=== PATIENT | female | born 1930 | race Caucasian/White ===

== ENCOUNTER → 2016-12-25 | Outpatient (CLI) | payer OTHER ==
[~2016-12-25] MED LIST: ACET325T96 PO; AMLO-110 PO; ARIP2TAB3 PO; ASPCH81 PO; ASPI81TA28 PO; CITA20TA4 PO; CLON0.5T3 PO; CYCL5TAB PO; CYM60 PO; DOCU-94 PO; DYZ PO; GABA-112 PO; HYOS1TAB PO; IMD/2 PO; LEVO75TA5 PO; LISI-461 PO; LSN10 PO; LSN20 PO; LSX20 PO; METO25TA3 PO; NABU500T3 PO; NICO21DI12 TD; NRV5 PO; OXYC-57 PO; POTA10CA28 PO; RISP1TAB68 PO; SYN75 PO; TOVIAZ ER PO; VSC/5 PO
[2016-12-25 10:04] LABS: BASO % 0.5 %; BASO ABS # 0.04 K/uL (0-0.2); COMPLETE YES; EOS % 1.9 %; IG% 0.1 %; LYMPH % 16.7 %; LYMPH ABS # 1.24 K/uL (1.2-3.4); MEAN CELL VOLUME 90.9 fL (80-100); MEAN CORPUSCULAR HEMOGLOBIN 30.9 pg (25-34); MEAN PLATELET VOLUME 10.5 fL (7.4-10.4); MONO % 11.8 %; PLATELET COUNT 224 K/uL (130-400); RED BLOOD COUNT 4.73 M/uL (4.2-5.4); WHITE BLOOD COUNT 7.44 K/uL (4.8-10.8)
[2016-12-25 10:12] LABS: ALT/SGPT 20 U/L (12-78); BLOOD UREA NITROGEN 20 mg/dl (7-18); BUN/CREATININE RATIO 20.1 (10-20); CALCIUM 8.6 mg/dl (8.5-10.1); CARBON DIOXIDE 25 mmol/L (21-32); CHLORIDE 109 mmol/L (98-107); CHOLESTEROL 212 mg/dl (0-200); CREATININE 0.97 mg/dl (0.60-1.20); GLUCOSE 94 mg/dl (70-99); SODIUM 143 mmol/L (136-145); TRIGLYCERIDES 196 mg/dl (0-150); VERY LOW DENSITY LIPOPROT CALC 39 mg/dl
[2016-12-25 10:22] LABS: ALB/GLOB RATIO 0.9 (0.9-2); ALKALINE PHOSPHATASE 81 U/L (45-117); AST/SGOT 15 U/L (15-37); CHOLESTEROL/HDL RATIO 5.9; HDL CHOLESTEROL 36 mg/dl; LDL CHOLESTEROL CALCULATED 137 mg/dl
== END | disposition home or self-care (01) ==
LOC: C.LABOUTLO 09:21
PROVIDERS: ATTEND Family Medicine
DX: I10 Essential (primary) hypertension (principal); E03.9 Hypothyroidism, unspecified

== ENCOUNTER 2017-02-24 21:28 | Inpatient (IN) | payer OTHER ==
[~2017-02-24] VITALS: Ht 149.9 cm; Wt 80.4 kg
[~2017-02-24 21:28] MED LIST changes: -ACET325T96 PO; -AMLO-110 PO; -ARIP2TAB3 PO; -ASPI81TA28 PO; -CITA20TA4 PO; -DOCU-94 PO; -GABA-112 PO; -IMD/2 PO; -LEVO75TA5 PO; -LSN10 PO; -LSN20 PO; -METO25TA3 PO; -NRV5 PO; -OXYC-57 PO; -VSC/5 PO
[2017-02-24] MEDS ORDERED: LEVO75TA5 PO (22:14)
[2017-02-24] MEDS ORDERED: LSN20 PO (22:14)
[2017-02-24] MEDS ORDERED: IMD/2 PO (22:15)
[2017-02-24] MEDS ORDERED: ARIP2TAB3 PO (22:15)
[2017-02-24] MEDS ORDERED: AMLO-110 PO (22:15)
[2017-02-24] MEDS ORDERED: ACET325T96 PO (22:15)
[2017-02-24] MEDS ORDERED: CITA20TA4 PO (22:15)
[2017-02-24] MEDS ORDERED: DOCU-94 PO (22:15)
[2017-02-24] MEDS ORDERED: OXYC-57 PO (22:15)
[2017-02-24] MEDS ORDERED: VSC/5 PO (22:15)
[2017-02-24] MEDS ORDERED: ASPI81TA28 PO (22:15)
[2017-02-24] MEDS ORDERED: METO25TA3 PO (22:15)
[2017-02-24] MEDS ORDERED: GABA-112 PO (22:15)
[2017-02-24] MEDS ORDERED: PIPERACILLIN/TAZOBACTAM 4.5 GM/100ML D5W IV STA (22:22)
[2017-02-24] MEDS ORDERED: LEVAQUIN 500MG / 100ML D5W IV ONE (22:30)
--- NOTE | 2017-02-24 22:40 | DIAGNOSTIC IMAGING REPORT ---
CHEST ONE VIEW PORTABLE CLINICAL HISTORY: Fever. COMPARISON STUDY: Chest radiograph April 01, 2009. FINDINGS: There is a prominent left perihilar opacity which was not evident on exam of April 01, 2009. A triangular opacity at the right cardiophrenic angle is unchanged since prior exam and likely reflects a fat pad. Moderate cardiomegaly is unchanged. There is no evidence of pulmonary edema. No pneumothorax or pleural effusions present. Apparent left basilar opacity is unchanged. IMPRESSION: Prominent left perihilar opacity which was not evident on prior exam. This could reflect normal structures however airspace disease or a mass could appear similar. Follow-up PA and lateral chest radiographs are recommended. Electronically signed by: Azam Carbajal M.D. 02/24/2017 10:38 PM Dictated Date/Time: 02/24/2017 10:36 PM
[2017-02-24 22:54] LABS: BASO % 0.2 %; BASO ABS # 0.03 K/uL (0-0.2); COMPLETE YES; HEMATOCRIT 42.5 % (37-47); IG% 0.3 %; LYMPH % 10.9 %; LYMPH ABS # 1.62 K/uL (1.2-3.4); MEAN CELL VOLUME 89.7 fL (80-100); MEAN CORPUSCULAR HGB CONC 34.6 g/dl (32-36); MEAN PLATELET VOLUME 10.6 fL (7.4-10.4); MONO % 11.6 %; PLATELET COUNT 212 K/uL (130-400); RED BLOOD COUNT 4.74 M/uL (4.2-5.4)
[2017-02-24 23:01] LABS: ALT/SGPT 18 U/L (12-78); BLOOD UREA NITROGEN 19 mg/dl (7-18); BUN/CREATININE RATIO 17.1 (10-20); CALCIUM 8.6 mg/dl (8.5-10.1); CARBON DIOXIDE 23 mmol/L (21-32); CHLORIDE 106 mmol/L (98-107); GLUCOSE 138 mg/dl (70-99); MAGNESIUM 1.8 mg/dl (1.8-2.4); POTASSIUM 4.3 mmol/L (3.5-5.1); SODIUM 138 mmol/L (136-145)
[2017-02-24 23:02] LABS: PROTHROMBIN TIME (PATIENT) 10.9 SECONDS (9.0-12.0)
[2017-02-24 23:06] LABS: ALKALINE PHOSPHATASE 82 U/L (45-117); AST/SGOT 17 U/L (15-37); CKMB/CK RATIO 1.3 (0-3.0)
[2017-02-24 23:16] LABS: ISTAT CREATININE 0.9 mg/dl (0.6-1.3); ISTAT HEMOGLOBIN 14.6 g/dl (12.0-16.0); ISTAT IONIZED CALCIUM 1.13 mmol/l (1.12-1.32)
[2017-02-24 23:46] LABS: URINE APPEARANCE CLOUDY (CLEAR); URINE COLOR DK YELLOW; URINE NITRITE POS (NEG); URINE SPECIFIC GRAVITY 1.031 (1.000-1.030); UROBILINOGEN NEG (NEG); ZZUR CULT IF INDIC CLEAN CATCH YES
[2017-02-24 23:47] LABS: MANUAL MICROSCOPIC REQUIRED? NO; REVIEW REQ? YES
[2017-02-25] VITALS (8 sets, daily range): BP systolic 104–184; BP diastolic 48–83; PULSE 43–59; TEMP 37–37.7; O2SAT 92–96; Ht 149.9 cm; Wt 80.4 kg
[2017-02-25] LABS: URINE BILIRUBIN NEG (NEG)
[2017-02-25] MEDS ORDERED: ALUMINUM/MAGNESIUM/SIMETH (MAALOX MAX) 30 ML UDC PO PRN (00:15)
[2017-02-25] MEDS ORDERED: MAGNESIUM HYDROXIDE SUSP 30 ML UDC PO PRN (00:15)
[2017-02-25] MEDS ORDERED: ONDANSETRON INJ 2 MG/ML 2 ML VIAL IV PRN (00:15)
[2017-02-25] MEDS ORDERED: POLYETHYLENE (MIRALAX) 17 GM PACK PO PRN (00:15)
[2017-02-25] MEDS ORDERED: ACETAMINOPHEN 325 MG TAB PO PRN (00:15)
--- NOTE | 2017-02-25 00:29 | History and Physical ---
History & Physical Date & Time of Service: Feb 25, 2017 at 00:28 Chief Complaint: Ams, Congestion Primary Care Physician: [facility] History of Present Illness Source: hospital records this is a 87 yo female with hx of dementia, resident at [facility] Personal care sent to ED -as pt was found to be lethargic, increasing confusion, having fever chills on going cough and difficulty breathing history was limited -as pt has baseline dementia, could not give any meaningful information Spoke with Pt 's Son Donnell Denton over phone -Son mentions -[facility] stuff notified the family that pt was not eating , was sleeping most of the time past 48 hrs spiked temp , coughing , today afternoon pt was having labored breathing , pulse oximetry shows desaturation in 88% 2 L 02 was applied ( baseline not on home 02 ) EMS called -sent to ED for evaluation lab shows -leukocytosis WBC 14 K , persistent hypoxia requiring supplemental 02 \ Cxray -possible basilar infiltrate pt admitted to Tele for Pneumonia-causing hypoxia, lethargy and changed mental status Past Medical/Surgical History Medical Problems: (1) Diverticulosis of colon (without mention of hemorrhage) Status: Chronic (2) Hypertension Status: Chronic (3) Hypothyroidism, unspecified Status: Chronic (4) Macular degeneration Status: Chronic Family History FH: cardiovascular disease Social History Smoking Status: Former Smoker Housing status: lives alone Immunizations History of Influenza Vaccine: Yes Influenza Vaccine Date: Dec 09, 2004 History of Tetanus Vaccine?: Unknown History of Pneumococcal: Yes Pneumococcal Date: Dec 09, 2002 History of Hepatitis B Vaccine: Unknown Multi-Drug Resistant Organisms History of MDRO: No Allergies Coded Allergies: Lamotrigine (Verified Allergy, Mild, RASH;WELPAOLO, 02/24/17) Aminoglycosides (Verified Allergy, Unknown, 02/24/17) Replaces BACITRACIN/NE Bacitracin (Verified Allergy, Unknown, 02/24/17) Replaces BACITRACIN/NE Neomycin (Verified Allergy, Unknown, 02/24/17) Replaces BACITRACIN/NE Polymyxin B (Verified Allergy, Unknown, 02/24/17) Replaces BACITRACIN/NE Sulfa Drugs (Verified Allergy, Unknown, 02/24/17) Home Medications Scheduled Amlodipine (Norvasc), 5 MG PO QAM Aripiprazole (Abilify), 2 MG PO QAM Aspirin (Aspirin Ec), 81 MG PO QAM Citalopram Hydrobromide (Citalopram Hydrobromide), 20 MG PO QAM Gabapentin (Neurontin), 100 MG PO DAILY AT 1600 Levothyroxine Sodium (Levothyroxine Sodium), 75 MCG PO QAM Lisinopril (Lisinopril), 20 MG PO QAM Metoprolol Succinate (Toprol Xl), 25 MG PO BID Potassium Chloride (Micro-K Ext Rel), 10 MEQ PO BIDM Solifenacin (Vesicare), 5 MG PO QAM Scheduled PRN Acetaminophen Tab (Tylenol), 650 MG PO Q4H PRN for Pain or Fever Docusate Sodium (Colace), 100-200 MG PO DAILY PRN for Constipation Loperamide Hcl (Imodium), 2 MG PO Q4H PRN for Diarrhea Oxycodone/Acetaminophen 5MG/325MG (Percocet 5MG/325MG), 1-2 TABLETS PO Q6H PRN for Pain Review of Systems Constitutional: + chills, + fatigue, + fever, + weakness Respiratory: + cough, + dyspnea on exertion, + shortness of breath, + sputum, + wheezing Abdomen: + nausea Neurologic: + memory loss (baseliene dementia ), + vertigo, + weakness Physical Exam Vital Signs Date Time Temp Pulse Resp B/P Pulse Ox O2 Delivery O2 Flow Rate FiO2 02/25/17 00:23 02/24/17 23:53 52 18 120/63 93 Nasal Cannula 2.0 02/24/17 21:51 46 02/24/17 21:28 90 Room Air 02/24/17 21:28 37.7 44 22 112/74 90 Room Air 02/24/17 21:28 90 Room Air General Appearance: no apparent distress (pleasant ) Eyes: normal inspection Respiratory/Chest: + decreased breath sounds, + crackles, + rales Cardiovascular: regular rate, rhythm, no edema Abdomen/GI: normal bowel sounds, non tender, soft Extremities/Musculoskelatal: no pedal edema Neurologic/Psych: + pertinent finding (baseline dementia, oriented to person only ) Diagnostics Laboratory Results Results Past 24 Hours Test 02/24/17 22:02 02/24/17 22:15 02/24/17 22:56 02/24/17 23:30 Range/Units Bedside Lactic Acid Venous 1.43 0.90-1.70 mmol/L White Blood Count 14.80 4.8-10.8 K/uL Red Blood Count 4.74 4.2-5.4 M/uL Hemoglobin 14.7 12.0-16.0 g/dL Hematocrit 42.5 37-47 % Mean Corpuscular Volume 89.7 80-100 fL Mean Corpuscular Hemoglobin 31.0 25-34 pg Mean Corpuscular Hemoglobin Concent 34.6 32-36 g/dl Platelet Count 212 130-400 K/uL Mean Platelet Volume 10.6 7.4-10.4 fL Neutrophils (%) (Auto) 77.0 % Lymphocytes (%) (Auto) 10.9 % Monocytes (%) (Auto) 11.6 % Eosinophils (%) (Auto) 0.0 % Basophils (%) (Auto) 0.2 % Neutrophils # (Auto) 11.39 1.4-6.5 K/uL Lymphocytes # (Auto) 1.62 1.2-3.4 K/uL Monocytes # (Auto) 1.72 0.11-0.59 K/uL Eosinophils # (Auto) 0.00 0-0.5 K/uL Basophils # (Auto) 0.03 0-0.2 K/uL RDW Standard Deviation 45.6 36.4-46.3 fL RDW Coefficient of Variation 13.8 11.5-14.5 % Immature Granulocyte % (Auto) 0.3 % Immature Granulocyte # (Auto) 0.04 0.00-0.02 K/uL Prothrombin Time 10.9 9.0-12.0 SECONDS Prothromb Time International Ratio 1.0 0.9-1.1 Sodium Level 138 136-145 mmol/L Potassium Level 4.3 3.5-5.1 mmol/L Chloride Level 106 98-107 mmol/L Carbon Dioxide Level 23 21-32 mmol/L Anion Gap 9.0 17.0 16-25 mmol/L Blood Urea Nitrogen 19 7-18 mg/dl Creatinine 1.10 0.60-1.20 mg/dl Est Creatinine Clear Calc Drug Dose 35.1 ml/min Estimated GFR () 51.5 Estimated GFR (Non- 44.5 BUN/Creatinine Ratio 17.1 10-20 Random Glucose 138 70-99 mg/dl Calcium Level 8.6 8.5-10.1 mg/dl Magnesium Level 1.8 1.8-2.4 mg/dl Total Bilirubin 1.2 0.2-1 mg/dl Direct Bilirubin 0.2 0-0.2 mg/dl Aspartate Amino Transf (AST/SGOT) 17 15-37 U/L Alanine Aminotransferase (ALT/SGPT) 18 12-78 U/L Alkaline Phosphatase 82 45-117 U/L Total Creatine Kinase 68 26-192 U/L Creatine Kinase MB 0.9 0.5-3.6 ng/ml Creatine Kinase MB Ratio 1.3 0-3.0 Troponin I < 0.015 0-0.045 ng/ml Total Protein 7.0 6.4-8.2 gm/dl Albumin 3.3 3.4-5.0 gm/dl Bedside Hemoglobin 14.6 12.0-16.0 g/dl Bedside Hematocrit 43 37-47 % Bedside Sodium 139 135-144 mEq/L Bedside Potassium 4.2 3.3-5.0 mEq/L Bedside Chloride 103 101-112 mEq/L Bedside Total CO2 24 24-31 mEq/l Bedside Blood Urea Nitrogen 18 7-18 mg/dl Bedside Creatinine 0.9 0.6-1.3 mg/dl Bedside Glucose (other) 136 70-99 mg/dl Bedside Ionized Calcium (Ochoa) 1.13 1.12-1.32 mmol/l Urine Color DK YELLOW Urine Appearance CLOUDY CLEAR Urine pH 5.0 4.5-7.5 Urine Specific [place] 1.031 1.000-1.030 Urine Protein 1+ NEG Urine Glucose (UA) NEG NEG Urine Ketones TRACE NEG Urine Occult Blood 1+ NEG Urine Nitrite POS NEG Urine Bilirubin NEG NEG Urine Urobilinogen NEG NEG Urine Leukocyte Esterase MODERATE NEG Urine WBC (Auto) >30 0-5 /hpf Urine RBC (Auto) 0-4 0-4 /hpf Urine Hyaline Casts (Auto) 10-30 0-5 /lpf Urine Epithelial Cells (Auto) 5-10 0-5 /lpf Urine Bacteria (Auto) 2+ NEG Urine Yeast (Auto) NONE PRSENT Test 02/24/17 23:48 Range/Units Influenza Type A Antigen Neg for Influ A NEG Influenza Type B Antigen Neg for Influ B NEG Microbiology Results 02/24/17 Blood Culture, Received Pending 02/24/17 Blood Culture, Received Pending 02/24/17 Urine Culture, Received Pending Diagnostic Radiology IMPRESSION: Prominent left perihilar opacity which was not evident on prior exam. This could reflect normal structures however airspace disease or a mass could appear similar. Follow-up PA and lateral chest radiographs are recommended. Impression Assessment and Plan HYPOXIA /SOB /PNEUMONIA : due to pneumonia -community acquired Influenza screen negative empiric Abx with Rocephin /Zithromax sputum /blood culture ordered cont supplemental 02 till pneumonia improved -may need 2 step exercise prior to discharge home neb tx repeat Cxray in AM CHANGED MENTAL STATUS /METABOLIC ENCEPHALOPATHY : due to above presented with Lethargy , increased somnolence improved after IV hydration , ABx awake , pleasant, oriented to person only very poor short term memory and recall -as per family members -Son -baseline mental status DEMENTIA : mental status improved to baseline cont to monitor caution for sundowning /delirium during hospital stay with acute illness HTN cont ACEI / Norvasc BRADYCARDIA ; not sure of the etiology monitor in tele ordered to hold beta leonid check TSH HYPOTHYROIDISM : cont levothyroxine ordered for TSH CODE STATUS : d/w SON /POA -has living will DNR /DNI DVT PROPHYLAXIS ; moderate to high risk sub q heparin DISPOSITION : resident at [facility] personal Care return to [facility] when medically stable PT/OT eval prior to discharge social service consulted for discharge planning Level of Care Telemetry Resuscitation Status DO NOT RESUSCITATE VTE Prophylaxis VTE Risk Assessment Done? Y/N: Yes Risk Level: Moderate Given or contraindicated: Unfractionated heparin SQ
[2017-02-25] MEDS ORDERED: OXYCODONE/ACETAMINOPHEN 5-325 TAB PO PRN (00:30)
[2017-02-25] MEDS ORDERED: DOCUSATE SODIUM 100 MG CAP PO PRN (00:30)
[2017-02-25] MEDS ORDERED: LOPERAMIDE HCL 2 MG CAP PO PRN (00:30)
[2017-02-25] MEDS ORDERED: SODIUM CHLORIDE 0.9% 1000ML 1,000 ML IV SCH (00:45)
[2017-02-25] MEDS ORDERED: [UNRECOGNIZED DRUG - REMARK] PRN (01:07)
[2017-02-25] MEDS: AZITHROMYCIN IV 500 MG in DEXTROSE 5% 250ML 250 ML IV SCH (01:10)
[2017-02-25] MEDS: CEFTRIAXONE SOD INJ 1 GM in DEXTROSE 5% ADD-VANTAGE 50ML 50 ML IV SCH (01:10)
--- NOTE | 2017-02-25 01:45 | EMERGENCY ROOM VISIT NOTE ---
History Report prepared by Laisha: Natacha Hoffmann Under the Supervision of: Dr. Devyn Ash D.O. First contact with patient: 22:09 Chief Complaint: CHEST PAIN Stated Complaint: AMS, CONGESTION Nursing Triage Summary: Per EMS, patient c/o of chest pain, nausea and pain in left shoulder since yesterday. Patient reports "feeling off." EMS reports "Facility staff reported patient not herself, "having inappropriate conversations." Hx of Afib. History of Present Illness The patient is a 87 year old female who presents to the Emergency Room with complaints of worsening respiratory symptoms that began yesterday. The history is obtained from the patient's sons due to her AMS. They state that the patient is at her baseline mentally. She is currently a resident at [facility]. Staff called the patient's son a couple of hours ago and stated that the patient had a fever with a temperature of 101. She has been short of breath and bradycardic. Her O2 was 82% on room air so she was sent to the ED for further evaluation. [facility] states that pneumonia is currently going through their facility. Sons note the patient to be coughing more than usual. The patient denies headache, chest pain, abdominal pain, and leg pain. The history is limited secondary to the patient's dementia. Source of History: patient, family (sons), correction notes History Limited By: dementia Onset: yesterday Position: chest (respiratory) Associated Symptoms: + SOB, + cough, + fevers, No abdominal pain, No chest pain, No headache Review of Systems ROS is limited secondary to the patient's dementia. Past Medical & Surgical Medical Problems: (1) Diverticulosis of colon (without mention of hemorrhage) (2) Hypertension (3) Hypothyroidism, unspecified (4) Macular degeneration (5) Pneumonia Family History FH: cardiovascular disease Social History Smoking Status: Former Smoker Marital Status: Housing Status: assisted living Occupation Status: unemployed Current/Historical Medications Scheduled Amlodipine (Norvasc), 5 MG PO QAM Aripiprazole (Abilify), 2 MG PO QAM Aspirin (Aspirin Ec), 81 MG PO QAM Citalopram Hydrobromide (Citalopram Hydrobromide), 20 MG PO QAM Gabapentin (Neurontin), 100 MG PO DAILY AT 1600 Levothyroxine Sodium (Levothyroxine Sodium), 75 MCG PO QAM Lisinopril (Lisinopril), 20 MG PO QAM Metoprolol Succinate (Toprol Xl), 25 MG PO BID Potassium Chloride (Micro-K Ext Rel), 10 MEQ PO BIDM Solifenacin (Vesicare), 5 MG PO QAM Scheduled PRN Acetaminophen Tab (Tylenol), 650 MG PO Q4H PRN for Pain or Fever Docusate Sodium (Colace), 100-200 MG PO DAILY PRN for Constipation Loperamide Hcl (Imodium), 2 MG PO Q4H PRN for Diarrhea Oxycodone/Acetaminophen 5MG/325MG (Percocet 5MG/325MG), 1-2 TABLETS PO Q6H PRN for Pain Allergies Coded Allergies: Lamotrigine (Verified Allergy, Mild, RASH;CHETNA, 02/24/17) Aminoglycosides (Verified Allergy, Unknown, 02/24/17) Replaces BACITRACIN/NE Bacitracin (Verified Allergy, Unknown, 02/24/17) Replaces BACITRACIN/NE Neomycin (Verified Allergy, Unknown, 02/24/17) Replaces BACITRACIN/NE Polymyxin B (Verified Allergy, Unknown, 02/24/17) Replaces BACITRACIN/NE Sulfa Drugs (Verified Allergy, Unknown, 02/24/17) Physical Exam Vital Signs Date Time Temp Pulse Resp B/P Pulse Ox O2 Delivery O2 Flow Rate FiO2 02/24/17 23:53 52 18 120/63 93 Nasal Cannula 2.0 02/24/17 21:51 46 02/24/17 21:28 90 Room Air 02/24/17 21:28 37.7 44 22 112/74 90 Room Air 02/24/17 21:28 90 Room Air Physical Exam GENERAL: alert, sitting up in bed, ill appearing, on NC O2, in no acute distress , pleasantly demented. EYE EXAM: normal conjunctiva, PERRL and EOM's grossly intact OROPHARYNX: no exudate, no erythema, lips, buccal mucosa, and tongue normal and mucous membranes are moist NECK: supple, no nuchal rigidity, no adenopathy, non-tender LUNGS: Rhonchi at the bases bilaterally. Normal chest wall mechanics HEART: Irregularly irregular, bradycardic, no murmurs, S1 normal and S2 normal ABDOMEN: abdomen soft, non-tender, normo-active bowel sounds, no masses, no rebound or guarding. BACK: Back is symmetrical on inspection and there is no deformity, no midline tenderness, no CVA tenderness. SKIN: no rashes and no bruising UPPER EXTREMITIES: upper extremities are grossly normal. NEURO EXAM: Alert and oriented to person but not place or time, at baseline per family. Intermittent stuttering speech. No focal deficit of upper extremities, slight flexion in the lower extremities, all at baseline. Medical Decision & Procedures ER Provider Diagnostic Interpretation: Radiology results as stated below per my review and the radiologist's interpretation: CHEST ONE VIEW PORTABLE CLINICAL HISTORY: Fever. COMPARISON STUDY: Chest radiograph April 01, 2009. FINDINGS: There is a prominent left perihilar opacity which was not evident on exam of April 01, 2009. A triangular opacity at the right cardiophrenic angle is unchanged since prior exam and likely reflects a fat pad. Moderate cardiomegaly is unchanged. There is no evidence of pulmonary edema. No pneumothorax or pleural effusions present. Apparent left basilar opacity is unchanged. IMPRESSION: Prominent left perihilar opacity which was not evident on prior exam. This could reflect normal structures however airspace disease or a mass could appear similar. Follow-up PA and lateral chest radiographs are recommended. Electronically signed by: Azam Carbajal M.D. 02/24/2017 10:38 PM Dictated Date/Time: 02/24/2017 10:36 PM Laboratory Results 02/24/17 22:15 Red Blood Count 4.74, Mean Corpuscular Volume 89.7, Mean Corpuscular Hemoglobin 31.0, Mean Corpuscular Hemoglobin Concent 34.6, Mean Platelet Volume 10.6, Neutrophils (%) (Auto) 77.0, Lymphocytes (%) (Auto) 10.9, Monocytes (%) (Auto) 11.6, Eosinophils (%) (Auto) 0.0, Basophils (%) (Auto) 0.2, Neutrophils # (Auto ) 11.39, Lymphocytes # (Auto) 1.62, Monocytes # (Auto) 1.72, Eosinophils # (Auto ) 0.00, Basophils # (Auto) 0.03 02/24/17 22:15 Test 02/24/17 22:02 02/24/17 22:15 02/24/17 22:56 02/24/17 23:30 Bedside Lactic Acid Venous 1.43 mmol/L (0.90-1.70) White Blood Count 14.80 K/uL (4.8-10.8) Red Blood Count 4.74 M/uL (4.2-5.4) Hemoglobin 14.7 g/dL (12.0-16.0) Hematocrit 42.5 % (37-47) Mean Corpuscular Volume 89.7 fL (80-100) Mean Corpuscular Hemoglobin 31.0 pg (25-34) Mean Corpuscular Hemoglobin Concent 34.6 g/dl (32-36) Platelet Count 212 K/uL (130-400) Mean Platelet Volume 10.6 fL (7.4-10.4) Neutrophils (%) (Auto) 77.0 % Lymphocytes (%) (Auto) 10.9 % Monocytes (%) (Auto) 11.6 % Eosinophils (%) (Auto) 0.0 % Basophils (%) (Auto) 0.2 % Neutrophils # (Auto) 11.39 K/uL (1.4-6.5) Lymphocytes # (Auto) 1.62 K/uL (1.2-3.4) Monocytes # (Auto) 1.72 K/uL (0.11-0.59) Eosinophils # (Auto) 0.00 K/uL (0-0.5) Basophils # (Auto) 0.03 K/uL (0-0.2) RDW Standard Deviation 45.6 fL (36.4-46.3) RDW Coefficient of Variation 13.8 % (11.5-14.5) Immature Granulocyte % (Auto) 0.3 % Immature Granulocyte # (Auto) 0.04 K/uL (0.00-0.02) Prothrombin Time 10.9 SECONDS (9.0-12.0) Prothromb Time International Ratio 1.0 (0.9-1.1) Est Creatinine Clear Calc Drug Dose 35.1 ml/min Estimated GFR () 51.5 Estimated GFR (Non- 44.5 BUN/Creatinine Ratio 17.1 (10-20) Calcium Level 8.6 mg/dl (8.5-10.1) Magnesium Level 1.8 mg/dl (1.8-2.4) Total Bilirubin 1.2 mg/dl (0.2-1) Direct Bilirubin 0.2 mg/dl (0-0.2) Aspartate Amino Transf (AST/SGOT) 17 U/L (15-37) Alanine Aminotransferase (ALT/SGPT) 18 U/L (12-78) Alkaline Phosphatase 82 U/L (45-117) Total Creatine Kinase 68 U/L (26-192) Creatine Kinase MB 0.9 ng/ml (0.5-3.6) Creatine Kinase MB Ratio 1.3 (0-3.0) Troponin I < 0.015 ng/ml (0-0.045) Total Protein 7.0 gm/dl (6.4-8.2) Albumin 3.3 gm/dl (3.4-5.0) Thyroid Stimulating Hormone (TSH) 2.890 uIu/ml (0.300-4.500) Bedside Hemoglobin 14.6 g/dl (12.0-16.0) Bedside Hematocrit 43 % (37-47) Bedside Sodium 139 mEq/L (135-144) Bedside Potassium 4.2 mEq/L (3.3-5.0) Bedside Chloride 103 mEq/L (101-112) Bedside Total CO2 24 mEq/l (24-31) Anion Gap 17.0 mmol/L (16-25) Bedside Blood Urea Nitrogen 18 mg/dl (7-18) Bedside Creatinine 0.9 mg/dl (0.6-1.3) Bedside Glucose (other) 136 mg/dl (70-99) Bedside Ionized Calcium ([place]cho[place]) 1.13 mmol/l (1.12-1.32) Urine Color DK YELLOW Urine Appearance CLOUDY (CLEAR) Urine pH 5.0 (4.5-7.5) Urine Specific [place] 1.031 (1.000-1.030) Urine Protein 1+ (NEG) Urine Glucose (UA) NEG (NEG) Urine Ketones TRACE (NEG) Urine Occult Blood 1+ (NEG) Urine Nitrite POS (NEG) Urine Bilirubin NEG (NEG) Urine Urobilinogen NEG (NEG) Urine Leukocyte Esterase MODERATE (NEG) Urine WBC (Auto) >30 /hpf (0-5) Urine RBC (Auto) 0-4 /hpf (0-4) Urine Hyaline Casts (Auto) 10-30 /lpf (0-5) Urine Epithelial Cells (Auto) 5-10 /lpf (0-5) Urine Bacteria (Auto) 2+ (NEG) Urine Yeast (Auto) (NONE PRSENT) Test 02/24/17 23:48 Influenza Type A Antigen Neg for Influ A (NEG) Influenza Type B Antigen Neg for Influ B (NEG) Laboratory results per my review. Medications Administered Medications (Trade) Dose Ordered Sig/Boo Route Start Time Stop Time Status Last Admin Dose Admin Piperacillin Sod/ Tazobactam Sod (Zosyn Iv) 4.5 gm NOW STAT IV 02/24/17 22:22 02/24/17 22:23 DC 02/24/17 23:01 4.5 GM Levofloxacin (Levaquin / D5W) 500 mg NOW ONCE IV 02/24/17 22:30 02/24/17 22:31 DC 02/24/17 23:01 500 MG ECG Indication: SOB/dyspnea Rate (beats per minute): 55 Rhythm: atrial fibrillation, other (bradycardic) Findings: T-wave inversion (Lateral), left axis deviation Comparison ECG Date: 04/27/11 Change: T-waves, a-fib, and bradycardia are all new. ED Course ED COURSE: Vital signs were reviewed and showed bradycardia and hypoxia. The patients medical record was reviewed The above diagnostic studies were performed and reviewed. ED treatments and interventions as stated above. 2209: The patient was evaluated in room B12B. A complete history and physical examination was performed. 2222: Zosyn 4.5 gm IV 2230: Levofloxacin 500 mg IV 2332: Upon reevaluation, the patient is resting comfortably. I discussed my findings with the patient's sons and they understand and agree with the treatment plan. Based on the patients age, coexisting illnesses, exam and lab findings the decision to treat as an inpatient was made. The patient remained stable while under my care. The patient will be evaluated for further management. 2334: I spoke with Dr. Heard. We discussed the patient's results and treatment plan. The patient will be evaluated by the [facility] Hospitalist Group for further management. Medical Decision Differential diagnosis includes etiologies such as sepsis, UTI, pneumonia, metabolic, electrolyte abnormalities, cardiac sources, intracerebral event, toxicologic, neurologic, as well as others were entertained. Patient is an 87-year-old female who presents the ER from correction for productive cough associated with hypoxia and weakness. Labs show a leukocytosis of 15,000. BMP along with LFTs, bilirubin and troponin were unremarkable. UA shows a clear UTI. INR was unremarkable. Influenza A and B was negative. Chest x-ray shows haziness around the left cardiac border. Heart rate was extruded bradycardic in the 40s and was A. fib. There were new flipped T waves in the lateral lead with ST changes. Troponin was negative. Last EKG was several years ago. I favor at this time this is likely nonischemic and possibly medication induced with her calcium channel blockers and beta blockers. Patient's systolic blood pressure was in the 120s. She is given Zosyn for broad-spectrum coverage although I favor her symptoms are likely secondary to her UTI and a possible pneumonia on chest x-ray. Consults Time Called: [phone] Consulting Physician: Dr. Heard Returned Call: [phone] Heard. We discussed the patient's results and treatment plan. The patient will be evaluated by the [facility] Hospitalist Group for further management. Impression Primary Impression: Hypoxia Additional Impressions: Bradycardia UTI (urinary tract infection) Pneumonia Scribe Attestation The scribe's documentation has been prepared under my direction and personally reviewed by me in its entirety. I confirm that the note above accurately reflects all work, treatment, procedures, and medical decision making performed by me. Departure Information Dispostion Being Evaluated By Hospitalist Referrals [place] (PCP) Patient Instructions My [facility] Problem Qualifiers Additional Impressions: UTI (urinary tract infection) Urinary tract infection type: site unspecified Hematuria presence: with hematuria Qualified Codes: N39.0 - Urinary tract infection, site not specified ; R31.9 - Hematuria, unspecified
[2017-02-25] MEDS: LEVOTHYROXINE 75 MCG TAB PO SCH (05:51)
[2017-02-25] MEDS ORDERED: PNEUMOCOCCAL ADMINISTRATION CHARGE ONE (08:00)
[2017-02-25] MEDS ORDERED: PNEUMOCOCCAL POLYSACCHARIDES 25 MCG/0.5 ML VIAL/SYR IM. ONE (08:00)
[2017-02-25] MEDS: VESICARE~ORDER AWAITING ACTION SCH ×3 (08:00→18:07)
[2017-02-25] MEDS: POTASSIUM CHLORIDE 10 MEQ TABCR PO SCH ×2 (08:12→17:47)
[2017-02-25] MEDS: CITALOPRAM 20 MG TAB PO SCH (08:13)
[2017-02-25] MEDS: ASPIRIN 81 MG ECTAB PO SCH (08:13)
[2017-02-25] MEDS: ARIPIprazole 1 MG/ML ORAL SOLN 150 ML BTL PO SCH (08:15)
[2017-02-25] MEDS: HEPARIN SOD 5000 UNIT/0.5 ML CARP SQ SCH ×2 (08:17→19:59)
[2017-02-25 09:14] LABS: BUN/CREATININE RATIO 15.4 (10-20); CALCIUM 8.7 mg/dl (8.5-10.1); POTASSIUM 3.9 mmol/L (3.5-5.1)
[2017-02-25] MEDS: LISINOPRIL 20 MG TAB PO SCH (11:08)
[2017-02-25] MEDS: AMLODIPINE BESYLATE 5 MG TAB PO SCH (11:08)
[2017-02-25] MEDS ORDERED: PERFLUTREN LIPID MICROSPHERE (DEFINITY) IV ONE (11:20)
--- NOTE | 2017-02-25 14:49 | Progress Note ---
Internal Med Progress Note Date of Service: Feb 25, 2017. Provider Documentation: SUBJECTIVE: Patient is sitting in chair Awake, oriented x 1, not able to have much meaningful conversation Does have a cough with sputum production. Denies any chest pain, fever, chills, nausea, vomiting, abd pain On 2 L Tele shows sinus bradycardia OBJECTIVE: Vital Signs-as noted below Exam: General Appearance: no apparent distress (pleasant ) Eyes: normal inspection Respiratory/Chest: + decreased breath sounds, + crackles, + rales Cardiovascular: regular rate, rhythm, no edema Abdomen/GI: normal bowel sounds, non tender, soft Extremities/Musculoskelatal: no pedal edema Neurologic/Psych: + pertinent finding (baseline dementia, oriented to person only ) Lab data as noted below. ASSESSMENT & PLAN: ACUTE HYPOXIC RESPIRATORY FAILURE Secondary to Pneumonia Tmax 37.7, Leucocytosis -IV Rocephin/Azithromycin -Blood, sputum cx - pending, Influenza screen is negative -Repeat CXR in AM METABOLIC ENCEPHALOPATHY : due to above Presented with Lethargy , increased somnolence -Improved after IV hydration , ABx EKG CHANGES T wave inversions in anterior leads new compared to prior EKG, less evident in today s EKG -No cardiac symptoms, but poor historian -Will do troponin x 2, 1st one negative, Echocardiogram ordered DEMENTIA : mental status improved to baseline -very poor short term memory and recall -as per family members -Son -baseline mental status -caution for sundowning /delirium during hospital stay with acute illness HTN -cont ACEI / Norvasc BRADYCARDIA ; -On beta leonid- will hold off -TSH- 2.890 HYPOTHYROIDISM : -Cont levothyroxine CODE STATUS : Discussed with SON /POA by Dr Heard -has living will DNR /DNI DVT PROPHYLAXIS ; moderate to high risk sub q heparin DISPOSITION : resident at [facility] personal Care return to [facility] when medically stable PT/OT eval prior to discharge social service consulted for discharge planning Vital Signs: Date Time Temp Pulse Resp B/P Pulse Ox O2 Delivery O2 Flow Rate FiO2 02/25/17 14:04 49 96 02/25/17 12:03 Nasal Cannula 2.0 02/25/17 11:12 37.3 50 18 126/79 92 02/25/17 08:00 Nasal Cannula 2.0 02/25/17 07:47 37.3 46 18 151/76 92 1.0 02/25/17 07:00 Nasal Cannula 2.0 02/25/17 04:00 Nasal Cannula 2.0 02/25/17 03:41 37.7 50 24 139/73 94 Nasal Cannula 2.0 02/25/17 00:47 37.1 43 22 184/74 02/25/17 00:45 Nasal Cannula 2.0 02/25/17 00:23 02/24/17 23:53 52 18 120/63 93 Nasal Cannula 2.0 02/24/17 21:51 46 02/24/17 21:28 90 Room Air 02/24/17 21:28 37.7 44 22 112/74 90 Room Air 02/24/17 21:28 90 Room Air Lab Results: Results Past 24 Hours Test 02/24/17 22:02 02/24/17 22:15 02/24/17 22:56 02/24/17 23:30 Range/Units Bedside Lactic Acid Venous 1.43 0.90-1.70 mmol/L White Blood Count 14.80 4.8-10.8 K/uL Red Blood Count 4.74 4.2-5.4 M/uL Hemoglobin 14.7 12.0-16.0 g/dL Hematocrit 42.5 37-47 % Mean Corpuscular Volume 89.7 80-100 fL Mean Corpuscular Hemoglobin 31.0 25-34 pg Mean Corpuscular Hemoglobin Concent 34.6 32-36 g/dl Platelet Count 212 130-400 K/uL Mean Platelet Volume 10.6 7.4-10.4 fL Neutrophils (%) (Auto) 77.0 % Lymphocytes (%) (Auto) 10.9 % Monocytes (%) (Auto) 11.6 % Eosinophils (%) (Auto) 0.0 % Basophils (%) (Auto) 0.2 % Neutrophils # (Auto) 11.39 1.4-6.5 K/uL Lymphocytes # (Auto) 1.62 1.2-3.4 K/uL Monocytes # (Auto) 1.72 0.11-0.59 K/uL Eosinophils # (Auto) 0.00 0-0.5 K/uL Basophils # (Auto) 0.03 0-0.2 K/uL RDW Standard Deviation 45.6 36.4-46.3 fL RDW Coefficient of Variation 13.8 11.5-14.5 % Immature Granulocyte % (Auto) 0.3 % Immature Granulocyte # (Auto) 0.04 0.00-0.02 K/uL Prothrombin Time 10.9 9.0-12.0 SECONDS Prothromb Time International Ratio 1.0 0.9-1.1 Sodium Level 138 136-145 mmol/L Potassium Level 4.3 3.5-5.1 mmol/L Chloride Level 106 98-107 mmol/L Carbon Dioxide Level 23 21-32 mmol/L Anion Gap 9.0 17.0 16-25 mmol/L Blood Urea Nitrogen 19 7-18 mg/dl Creatinine 1.10 0.60-1.20 mg/dl Est Creatinine Clear Calc Drug Dose 35.1 ml/min Estimated GFR () 51.5 Estimated GFR (Non- 44.5 BUN/Creatinine Ratio 17.1 10-20 Random Glucose 138 70-99 mg/dl Calcium Level 8.6 8.5-10.1 mg/dl Magnesium Level 1.8 1.8-2.4 mg/dl Total Bilirubin 1.2 0.2-1 mg/dl Direct Bilirubin 0.2 0-0.2 mg/dl Aspartate Amino Transf (AST/SGOT) 17 15-37 U/L Alanine Aminotransferase (ALT/SGPT) 18 12-78 U/L Alkaline Phosphatase 82 45-117 U/L Total Creatine Kinase 68 26-192 U/L Creatine Kinase MB 0.9 0.5-3.6 ng/ml Creatine Kinase MB Ratio 1.3 0-3.0 Troponin I < 0.015 0-0.045 ng/ml Total Protein 7.0 6.4-8.2 gm/dl Albumin 3.3 3.4-5.0 gm/dl Thyroid Stimulating Hormone (TSH) 2.890 0.300-4.500 uIu/ml Bedside Hemoglobin 14.6 12.0-16.0 g/dl Bedside Hematocrit 43 37-47 % Bedside Sodium 139 135-144 mEq/L Bedside Potassium 4.2 3.3-5.0 mEq/L Bedside Chloride 103 101-112 mEq/L Bedside Total CO2 24 24-31 mEq/l Bedside Blood Urea Nitrogen 18 7-18 mg/dl Bedside Creatinine 0.9 0.6-1.3 mg/dl Bedside Glucose (other) 136 70-99 mg/dl Bedside Ionized Calcium ([place]) 1.13 1.12-1.32 mmol/l Urine Color DK YELLOW Urine Appearance CLOUDY CLEAR Urine pH 5.0 4.5-7.5 Urine Specific [place] 1.031 1.000-1.030 Urine Protein 1+ NEG Urine Glucose (UA) NEG NEG Urine Ketones TRACE NEG Urine Occult Blood 1+ NEG Urine Nitrite POS NEG Urine Bilirubin NEG NEG Urine Urobilinogen NEG NEG Urine Leukocyte Esterase MODERATE NEG Urine WBC (Auto) >30 0-5 /hpf Urine RBC (Auto) 0-4 0-4 /hpf Urine Hyaline Casts (Auto) 10-30 0-5 /lpf Urine Epithelial Cells (Auto) 5-10 0-5 /lpf Urine Bacteria (Auto) 2+ NEG Urine Yeast (Auto) NONE PRSENT Test 02/24/17 23:48 02/25/17 08:30 Range/Units Influenza Type A Antigen Neg for Influ A NEG Influenza Type B Antigen Neg for Influ B NEG Sodium Level 140 136-145 mmol/L Potassium Level 3.9 3.5-5.1 mmol/L Chloride Level 105 98-107 mmol/L Carbon Dioxide Level 27 21-32 mmol/L Anion Gap 8.0 3-11 mmol/L Blood Urea Nitrogen 15 7-18 mg/dl Creatinine 1.00 0.60-1.20 mg/dl Est Creatinine Clear Calc Drug Dose 35.2 ml/min Estimated GFR () 57.8 Estimated GFR (Non- 49.9 BUN/Creatinine Ratio 15.4 10-20 Random Glucose 111 70-99 mg/dl Calcium Level 8.7 8.5-10.1 mg/dl Microbiology Results 02/24/17 Blood Culture, Received Pending 02/24/17 Blood Culture, Received Pending 02/25/17 MRSA DNA Surveillance Screen - Final, Complete Specimen Negative for MRSA by DNA Probe 02/24/17 Urine Culture, Received Pending
[2017-02-25] MEDS: GABAPENTIN 100 MG CAP PO SCH (17:46)
--- NOTE | 2017-02-25 17:56 | ECHOCARDIOGRAM REPORT ---
*NOTICE TO RECEIVING [employer] This information is strictly Confidential and protected under [place] law. [place] law prohibits you from making any further disclosure of this information unless further disclosure is expressly permitted by the written consent of the person to whom it pertains or is authorized by law. A general authorization for the release of medical or other information is not sufficient for this purpose. Hospital accepts no responsibility if the information is made available to any other person, INCLUDING THE PATIENT. Interpretation Summary * The study was technically difficult. * The study was technically limited. * Compared to prior study, there is no significant change. * -- Conclusions -- * Ejection Fraction = 65-70%. * There is mild concentric left ventricular hypertrophy. * Aortic valve sclerosis mild, without significant aortic valvular stenosis. * There is mild tricuspid regurgitation. * The estimated pulmonary sytolic pressure is 50mmhg. * Grade I diastolic dysfunction, (abnormal relaxation pattern). Procedure Details * A complete two-dimensional transthoracic echocardiogram was performed (2D, M-mode, Doppler and color flow Doppler). * The study was technically difficult. * There were technical limitations due to patient'sinability to cooperate * A contrast injection of Definity was performed to improve assessment of LV function. * Contrast was injected into an intravenous site in the right arm. * One vial of Definity ultrasound contrast was diluted in normal saline to a total volume of 10 ml. A total of '3' ml of solution was administered during imaging. * Lot # [id number] of Definity utilized for procedure. * Expiration date 03/09. * The attending nurse who injected the contrast agent was JERARDO MARTINEZ RN. Left Ventricle * The left ventricle is normal in size. * There is no thrombus. * There is mild concentric left ventricular hypertrophy. * Ejection Fraction = 65-70%. * Left ventricular systolic function is normal. * The left ventricular wall motion is normal. Right Ventricle * The right ventricle is normal size. * The right ventricular systolic function is normal as assessed by tricuspid annular plane systolic excursion (TAPSE) (normal >1.5 cm). Atria * The left atrium is mildly dilated. * Right atrial size is normal. * There is no evidence of atrial septal defect, but resolution does not allow assessment for a patent foramen ovale. Mitral Valve * There is moderate mitral annular calcification. * There is no mitral valve stenosis. * Significant mitral regurgitation is absent. Tricuspid Valve * The tricuspid valve is normal. * There is no tricuspid stenosis. * There is mild tricuspid regurgitation. * The estimated pulmonary sytolic pressure is 50mmhg. Aortic Valve * The aortic valve is trileaflet. * Aortic valve sclerosis mild, without significant aortic valvular stenosis. * Aortic stenosis is absent. * There is no significant aortic regurgitation. Pulmonic Valve * The pulmonary valve is not well seen, but the Doppler examination is normal without significant regurgitation or stenosis. Great Vessels * The aortic root is normal size. Pericardium/Pleural * There is no pericardial effusion. Great Vessels * Normal inferior vena cava diameter and respiratory variation suggests normal central venous pressure. Left Ventricular Diastolic Function * Grade I diastolic dysfunction, (abnormal relaxation pattern). MMode 2D Measurements and Calculations IVSd 1.3 cm IVSs 2.1 cm LVIDd 4.2 cm LVIDs 2.3 cm LVPWd 1.2 cm LVPWs 2.0 cm IVS/LVPW 1.1 FS 45.4 % EDV(Teich) 76.7 ml ESV(Teich) 17.5 ml EF(Teich) 77.2 % EDV(cubed) 71.9 ml ESV(cubed) 11.7 ml EF(cubed) 83.7 % % IVS thick 58.7 % % LVPW thick 66.4 % LV mass(C)d 189.1 grams LV mass(C)dI 107.5 grams/m\S\2 LV mass(C)s 205.6 grams LV mass(C)sI 116.9 grams/m\S\2 CO(Teich) 2.5 l/min CI(Teich) 1.4 l/min/m\S\2 SV(Teich) 59.2 ml SI(Teich) 33.6 ml/m\S\2 CO(cubed) 2.6 l/min CI(cubed) 1.5 l/min/m\S\2 SV(cubed) 60.2 ml SI(cubed) 34.2 ml/m\S\2 ACS 0.83 cm asc Aorta Diam 3.5 cm LVOT diam 2.0 cm LVOT area 3.0 cm\S\2 LVAd ap4 24.5 cm\S\2 LVLd ap4 7.6 cm EDV(MOD-sp4) 64.5 ml LVAs ap4 9.9 cm\S\2 LVLs ap4 5.7 cm ESV(MOD-sp4) 14.7 ml EF(MOD-sp4) 77.2 % LVAd ap2 30.4 cm\S\2 LVLd ap2 7.9 cm EDV(MOD-sp2) 99.1 ml LVAs ap2 13.5 cm\S\2 LVLs ap2 6.0 cm ESV(MOD-sp2) 25.7 ml EF(MOD-sp2) 74.1 % CO(MOD-sp4) 2.1 l/min CI(MOD-sp4) 1.2 l/min/m\S\2 SV(MOD-sp4) 49.8 ml SI(MOD-sp4) 28.3 ml/m\S\2 CO(MOD-sp2) 3.2 l/min CI(MOD-sp2) 1.8 l/min/m\S\2 SV(MOD-sp2) 73.4 ml SI(MOD-sp2) 41.7 ml/m\S\2 Doppler Measurements and Calculations MV E max mary 97.0 cm/sec MV A max mary 109.6 cm/sec MV E/A 0.88 MV dec time 0.33 sec Ao V2 max 156.1 cm/sec Ao max PG 9.7 mmHg Ao max PG (full) 5.1 mmHg NATE(V,A) 2.1 cm\S\2 NATE(V,D) 2.1 cm\S\2 LV V1 max PG 4.7 mmHg LV V1 max 108.2 cm/sec PA V2 max 77.6 cm/sec PA max PG 2.4 mmHg TR max mary 346.0 cm/sec
[2017-02-26] MEDS: CEFTRIAXONE SOD INJ 1 GM in DEXTROSE 5% ADD-VANTAGE 50ML 50 ML IV SCH (00:29)
[2017-02-26] MEDS: AZITHROMYCIN IV 500 MG in DEXTROSE 5% 250ML 250 ML IV SCH (01:43)
[2017-02-26 03:18] VITALS: BP 134/70; PULSE 45; TEMP 36.8; O2SAT 93
[2017-02-26] MEDS: LEVOTHYROXINE 75 MCG TAB PO SCH (05:30)
[2017-02-26 07:24] LABS: HEMATOCRIT 36.2 % (37-47); MEAN CELL VOLUME 90.5 fL (80-100); MEAN CORPUSCULAR HEMOGLOBIN 30.5 pg (25-34); MEAN CORPUSCULAR HGB CONC 33.7 g/dl (32-36); MEAN PLATELET VOLUME 10.1 fL (7.4-10.4); PLATELET COUNT 160 K/uL (130-400); WHITE BLOOD COUNT 11.01 K/uL (4.8-10.8)
--- NOTE | 2017-02-26 07:28 | DIAGNOSTIC IMAGING REPORT ---
CHEST ONE VIEW PORTABLE CLINICAL HISTORY: pneumonia dyspnea COMPARISON STUDY: 02/24/2017 FINDINGS: Left perihilar region appears clear. Minimal bibasilar infiltrative change. Mid and upper lungs are considered clear. IMPRESSION: Improved left perihilar changes previously described. Minimal bibasilar infiltrative/atelectatic change. Electronically signed by: Rene Renee M.D. 02/26/2017 7:26 AM Dictated Date/Time: 02/26/2017 7:25 AM
[2017-02-26] MEDS: POTASSIUM CHLORIDE 10 MEQ TABCR PO SCH ×2 (07:30→15:59)
[2017-02-26] MEDS: VESICARE~ORDER AWAITING ACTION SCH ×3 (08:00→22:34)
[2017-02-26 08:06] LABS: BUN/CREATININE RATIO 16.1 (10-20); CALCIUM 8.6 mg/dl (8.5-10.1); CREATININE 0.96 mg/dl (0.60-1.20); POTASSIUM 3.9 mmol/L (3.5-5.1)
[2017-02-26 08:40] VITALS: BP 132/82; PULSE 48; TEMP 37; O2SAT 93
[2017-02-26] MEDS: ARIPIprazole 1 MG/ML ORAL SOLN 150 ML BTL PO SCH (08:43)
[2017-02-26] MEDS: LISINOPRIL 20 MG TAB PO SCH (08:43)
[2017-02-26] MEDS: ASPIRIN 81 MG ECTAB PO SCH (08:43)
[2017-02-26] MEDS: CITALOPRAM 20 MG TAB PO SCH (08:43)
[2017-02-26] MEDS: AMLODIPINE BESYLATE 5 MG TAB PO SCH (08:44)
[2017-02-26] MEDS: HEPARIN SOD 5000 UNIT/0.5 ML CARP SQ SCH ×2 (08:46→20:51)
--- NOTE | 2017-02-26 11:46 | Progress Note ---
Internal Med Progress Note Date of Service: Feb 26, 2017. Provider Documentation: SUBJECTIVE: Patient's mental status is better- more awake, but minimal conversation, unable to get much history Does have cough with sputum production. Denies any chest pain, fever, chills, nausea, vomiting, abd pain On 2 L Tele - Bradycardia, junctional rhythm, HR down to 30s OBJECTIVE: Vital Signs-as noted below Exam: General Appearance: no apparent distress (pleasant ) Eyes: normal inspection Respiratory/Chest: + decreased breath sounds, + crackles, + rales - Improved Cardiovascular: regular rate, rhythm, no edema Abdomen/GI: normal bowel sounds, non tender, soft Extremities/Musculoskelatal: no pedal edema Neurologic/Psych: + pertinent finding (baseline dementia, oriented to person only ) Lab data as noted below. ASSESSMENT & PLAN: BRADYCARDIA, JUNCTIONAL RHYTHM: HR down to 30s , junctional rhythm. Unable to get any history from patient -Was on Metoprolol 25 mg PO BID prior to admission- held since admission -Will consult Cardiology , may need EP consultation for possible pacemaker need. -Troponin x 2 negative, Echo - EF 65-70%, Mild LVH, Gd I diastolic dysfunction ACUTE HYPOXIC RESPIRATORY FAILURE Secondary to Pneumonia Tmax 37.7, Leucocytosis -IV Rocephin/Azithromycin (Day 2) (QTC- normal) -Blood culture x 2- negative, Influenza screen is negative -CXR- Improved compared to prior EKG METABOLIC ENCEPHALOPATHY IN SETTING OF DEMENTIA due to above Presented with Lethargy , increased somnolence -Improved DEMENTIA : mental status improved to baseline - Oriented to person only, minimal conversation -very poor short term memory and recall -as per family members -Son -baseline mental status -caution for sundowning /delirium during hospital stay with acute illness HTN -cont ACEI / Norvasc HYPOTHYROIDISM : -Cont levothyroxine -TSH- normal CODE STATUS : Discussed with SON /POA by Dr Heard -has living will DNR /DNI DVT PROPHYLAXIS ; moderate to high risk sub q heparin DISPOSITION : resident at [facility] dementia unit return to [facility] when medically stable PT/OT eval prior to discharge social service consulted for discharge planning Vital Signs: Date Time Temp Pulse Resp B/P Pulse Ox O2 Delivery O2 Flow Rate FiO2 02/26/17 08:40 37.0 48 20 132/82 93 Nasal Cannula 3.0 02/26/17 08:00 Nasal Cannula 3.0 02/26/17 04:00 Nasal Cannula 2.0 02/26/17 03:18 36.8 45 18 134/70 93 Nasal Cannula 2.0 02/26/17 00:00 Nasal Cannula 2.0 02/25/17 23:02 37.4 46 19 104/48 94 Nasal Cannula 2.0 02/25/17 20:10 Nasal Cannula 2.0 02/25/17 19:41 37.0 58 18 129/83 92 Nasal Cannula 2.0 02/25/17 16:00 Nasal Cannula 2.0 02/25/17 15:24 37.3 59 20 147/72 93 Nasal Cannula 2.0 02/25/17 14:04 49 96 02/25/17 12:03 Nasal Cannula 2.0 Lab Results: Results Past 24 Hours Test 02/25/17 15:18 02/25/17 20:46 02/26/17 07:00 Range/Units Troponin I < 0.015 < 0.015 0-0.045 ng/ml White Blood Count 11.01 4.8-10.8 K/uL Red Blood Count 4.00 4.2-5.4 M/uL Hemoglobin 12.2 12.0-16.0 g/dL Hematocrit 36.2 37-47 % Mean Corpuscular Volume 90.5 80-100 fL Mean Corpuscular Hemoglobin 30.5 25-34 pg Mean Corpuscular Hemoglobin Concent 33.7 32-36 g/dl RDW Standard Deviation 46.5 36.4-46.3 fL RDW Coefficient of Variation 14.0 11.5-14.5 % Platelet Count 160 130-400 K/uL Mean Platelet Volume 10.1 7.4-10.4 fL Sodium Level 142 136-145 mmol/L Potassium Level 3.9 3.5-5.1 mmol/L Chloride Level 108 98-107 mmol/L Carbon Dioxide Level 27 21-32 mmol/L Anion Gap 7.0 3-11 mmol/L Blood Urea Nitrogen 15 7-18 mg/dl Creatinine 0.96 0.60-1.20 mg/dl Est Creatinine Clear Calc Drug Dose 36.7 ml/min Estimated GFR () 60.8 Estimated GFR (Non- 52.4 BUN/Creatinine Ratio 16.1 10-20 Random Glucose 105 70-99 mg/dl Calcium Level 8.6 8.5-10.1 mg/dl Total Bilirubin 1.2 0.2-1 mg/dl Direct Bilirubin 0.2 0-0.2 mg/dl Aspartate Amino Transf (AST/SGOT) 10 15-37 U/L Alanine Aminotransferase (ALT/SGPT) 16 12-78 U/L Alkaline Phosphatase 63 45-117 U/L Total Protein 6.5 6.4-8.2 gm/dl Albumin 2.7 3.4-5.0 gm/dl
[2017-02-26 12:03] VITALS: BP 147/85; PULSE 53; TEMP 36.7; O2SAT 94
--- NOTE | 2017-02-26 14:38 | CARDIOLOGY CONSULTATION ---
DATE OF CONSULTATION: 02/26/2017 DATE OF CONSULTATION: 02/26/2017. REFERRING PHYSICIAN: Dr. Radha Mendoza. REASON FOR CONSULTATION: Bradycardia, ? need for pacemaker. CHIEF COMPLAINT ON ADMISSION: Change in mental status, congestion. HISTORY OF PRESENT ILLNESS: Ms. Denton is an 87-year-old female with history of dementia and a resident at [facility]. At the residential she was found to be lethargic and confused. There were also reports of ongoing cough, shortness of breath, intermittent fevers. The patient was brought to the Emergency Department and was noted to be hypoxic with an SaO2 of 88% on room air, noted to have a leukocytosis as well as a possible infiltrate on x-ray. She was admitted for community-acquired pneumonia. While on intermediate teacher, the patient was noted to have episodes of sinus bradycardia as well as junctional bradycardia with heart rates as low as 38 beats per minute overnight. Bradycardia ended at approximately 7:30 this morning which coincided with the patient's waking. Currently, her heart rate is 55 beats per minute in sinus rhythm. The medical record confirms prescription of beta-leonid therapy for treatment of hypertension in the past. No history of coronary disease, dysrhythmia, or valvular heart disease. The patient is a poor historian due to dementia. She is oriented to person only. She offers no complaints. Both sons are present at the bedside and report a history of cough, congestion, and confusion. Today they feel she is returned to her baseline mental status. REVIEW OF SYSTEMS: The pertinent positive noted above, comprehensive 10 system review could not be completed with the patient as she is a poor historian, however, her review of systems otherwise unremarkable per discussion with her sons and review of the medical record. PAST MEDICAL HISTORY: 1. Hypertension. 2. Diverticulitis. 3. Irritable bowel syndrome. 4. Bipolar disorder. 5. Dementia. 6. Dyslipidemia. 7. Cerebrovascular disease. 8. Raynaud's. 9. Myositis. PAST SURGICAL HISTORY: 1. Colonoscopy. 2. Cystoscopy. 3. Tubal ligation. 4. Appendectomy. 5. Tonsil and adenoidectomy. 6. Hysterectomy. SOCIAL HISTORY: Former tobacco abuse with a 45-wrtw-atpl history. Currently is a resident at [facility]. She is a . FAMILY HISTORY: Negative for premature coronary disease or sudden cardiac ; however noncontributory given patient's advanced age. ALLERGIES: LUVOX, CHLORTABS, LAMOTRIGINE, NEOSPORIN, SULFA ANTIBIOTICS. OUTPATIENT MEDICATIONS: 1. Gabapentin 100 mg daily. 2. Levoxyl 75 mcg daily. 3. Prinivil 20 mg 2 times daily. 4. Aspirin 81 mg daily. 5. Potassium chloride 10 mEq twice daily. 6. VESIcare daily. 7. Celexa 20 mg daily. 8. Amlodipine 5 mg daily. 9. Abilify 2 mg -- 2 tablets by mouth daily. 10. Metoprolol succinate 25 mg twice daily. 11. Oxycodone/acetaminophen 5/325 1-2 pills every 6 hours as needed. 12. Lasix 20 mg daily. 13. Ativan 0.5 mg as needed. 14. Imodium as needed. 15. Colace as needed. 16. Tylenol as needed. ECG 02/26/2017 demonstrates junctional bradycardia, rate of 43 beats per minute, ST and T-wave abnormality, consider lateral ischemia. Chest x-ray demonstrates minimal bibasilar infiltrate/atelectatic changes. LABORATORY DATA: Cardiac enzymes are negative x2 sets. The sodium 142, potassium 3.9, chloride 108, CO2 27, BUN is 15, creatinine 0.96. White blood cell count 11.01. Hemoglobin is 4.0, platelet count is 160. Influenza screen is negative. PHYSICAL EXAMINATION: VITAL SIGNS: Temperature is 37.6 degrees centigrade, pulse 53 beats per minute and regular, respiratory rate is 20 breaths per minute, blood pressure 147/85. SaO2 94% on 4 liters. GENERAL: NAD, awake, alert, oriented to person only. HEAD, EYES, EARS, NOSE, AND THROAT: Mucous membranes are moist. There is no scleral icterus. Conjunctivae are pink. NECK: Supple without JVD or HJR. HEART: Regular with a normal S1 and S2. No murmur, rub, or gallop appreciated. LUNGS: Demonstrate scattered rhonchi bilaterally with end expiratory wheeze. ABDOMEN: Obese and nontender. No rebound or guarding. EXTREMITIES: Warm and dry without clubbing, cyanosis, or edema. NEUROLOGIC EXAMINATION: Demonstrates no focal motor deficit. Cranial nerves grossly intact. FINAL IMPRESSION: 1. Asymptomatic sinus and junctional bradycardia recorded during presumed hours of sleep. Currently, patient is sinus rhythm at 55-65 beats per minute. I suspect her bradycardia is related to treatment with beta leonid therapy which has been placed on hold. 2. Acute hypoxic respiratory failure secondary to healthcare associated pneumonia. 3. Metabolic encephalopathy with underlying dementia. 4. Hypertension -- controlled. PLAN AND RECOMMENDATIONS: Recommend discontinuation of beta-leonid therapy. Continue telemetry monitoring for recurrent symptomatic bradycardia, high degree heart block, or significant pauses. Currently, there is no overt indication for pacemaker implantation. All AV yoly blocking agents should be avoided at this time. Continue to monitor blood pressure for signs of worsening hypertension with recent discontinuation of beta-leonid therapy. No further cardiac testing at this time. Thank you for allowing me to take part in the care of your patient.
[2017-02-26] MEDS: GABAPENTIN 100 MG CAP PO SCH (15:59)
[2017-02-26 16:00] VITALS: BP 147/67; PULSE 41; TEMP 37; O2SAT 95
[2017-02-26 20:09] VITALS: BP 132/76; PULSE 49; TEMP 37; O2SAT 93
[2017-02-27] VITALS (8 sets, daily range): BP systolic 127–199; BP diastolic 62–97; PULSE 41–61; TEMP 36.3–37.2; O2SAT 91–95
[2017-02-27] MEDS: CEFTRIAXONE SOD INJ 1 GM in DEXTROSE 5% ADD-VANTAGE 50ML 50 ML IV SCH (00:38)
[2017-02-27] MEDS: AZITHROMYCIN IV 500 MG in DEXTROSE 5% 250ML 250 ML IV SCH (01:08)
[2017-02-27] MEDS: LEVOTHYROXINE 75 MCG TAB PO SCH (05:39)
[2017-02-27 07:08] LABS: HEMATOCRIT 37.4 % (37-47); MEAN CELL VOLUME 91.2 fL (80-100); MEAN CORPUSCULAR HGB CONC 32.9 g/dl (32-36); MEAN PLATELET VOLUME 10.6 fL (7.4-10.4); PLATELET COUNT 177 K/uL (130-400); WHITE BLOOD COUNT 8.04 K/uL (4.8-10.8)
[2017-02-27 07:46] LABS: CALCIUM 8.6 mg/dl (8.5-10.1); CREATININE 0.92 mg/dl (0.60-1.20); POTASSIUM 3.9 mmol/L (3.5-5.1)
[2017-02-27] MEDS: VESICARE~ORDER AWAITING ACTION SCH ×3 (08:00→22:57)
[2017-02-27] MEDS: POTASSIUM CHLORIDE 10 MEQ TABCR PO SCH ×2 (08:20→16:18)
[2017-02-27] MEDS: ARIPIprazole 1 MG/ML ORAL SOLN 150 ML BTL PO SCH (08:20)
[2017-02-27] MEDS: CITALOPRAM 20 MG TAB PO SCH (08:21)
[2017-02-27] MEDS: ASPIRIN 81 MG ECTAB PO SCH (08:21)
[2017-02-27] MEDS: AMLODIPINE BESYLATE 5 MG TAB PO SCH (08:21)
[2017-02-27] MEDS: LISINOPRIL 20 MG TAB PO SCH (08:21)
[2017-02-27] MEDS: HEPARIN SOD 5000 UNIT/0.5 ML CARP SQ SCH ×2 (08:22→21:07)
--- NOTE | 2017-02-27 12:28 | Progress Note ---
Internal Med Progress Note Date of Service: Feb 27, 2017. Provider Documentation: SUBJECTIVE : Patient's mental status is better - more awake, conversing more today c/o pain in right hip Does have cough with sputum production- improving. Denies any chest pain, fever , chills, nausea, vomiting, abd pain On 2 L Tele - Bradycardia, junctional rhythm, HR down to 30s while at rest 40-50s while awake OBJECTIVE: Vital Signs-as noted below Exam: General Appearance: no apparent distress (pleasant ) Eyes: normal inspection Respiratory/Chest: + decreased breath sounds, + crackles, + rales - Improved Cardiovascular: regular rate, rhythm, no edema Abdomen/GI: normal bowel sounds, non tender, soft Extremities/Musculoskelatal: no pedal edema Neurologic/Psych: + pertinent finding (baseline dementia, oriented to person only ) Lab data as noted below. ASSESSMENT & PLAN: BRADYCARDIA, JUNCTIONAL RHYTHM: HR down to 30s, junctional rhythm during rest and while awake 40-55s. -Was on Metoprolol 25 mg PO BID prior to admission- held since admission -Consulted cardiology- at this point will just monitor. -Troponin x 2 negative, Echo - EF 65-70%, Mild LVH, Gd I diastolic dysfunction ACUTE HYPOXIC RESPIRATORY FAILURE -Improving Secondary to Pneumonia Tmax 37.7, Leucocytosis -IV Rocephin/Azithromycin (Day 3) (QTC- normal) -Blood culture x 2- negative, Influenza screen is negative -CXR- Improved compared to prior one METABOLIC ENCEPHALOPATHY IN SETTING OF DEMENTIA due to above Presented with Lethargy , increased somnolence -Improved, near baseline now DEMENTIA : Mental status improved to baseline -oriented to person -very poor short term memory and recall -as per family members -Son -baseline mental status -caution for sundowning /delirium during hospital stay with acute illness HTN -cont ACEI / Norvasc HYPOTHYROIDISM : -Cont levothyroxine -TSH- normal CODE STATUS : Discussed with SON /POA by Dr Heard -has living will DNR /DNI DVT PROPHYLAXIS ; moderate to high risk sub q heparin DISPOSITION : Continue to monitor on tele monitor resident at [facility] dementia unit return to [facility] when medically stable PT/OT eval social service consulted for discharge planning Vital Signs: Date Time Temp Pulse Resp B/P Pulse Ox O2 Delivery O2 Flow Rate FiO2 02/27/17 11:29 37.0 46 20 127/76 92 Nasal Cannula 2.0 02/27/17 08:00 Nasal Cannula 2.0 02/27/17 07:46 36.3 45 22 136/62 91 Nasal Cannula 2.0 02/27/17 04:04 37.0 61 20 183/78 95 Nasal Cannula 199/97 02/27/17 04:00 Nasal Cannula 2.0 02/27/17 00:20 37.1 41 18 131/75 94 Nasal Cannula 02/27/17 00:00 Nasal Cannula 2.0 02/26/17 20:09 37.0 49 18 132/76 93 Nasal Cannula 2.0 02/26/17 20:00 Nasal Cannula 2.0 02/26/17 16:00 37.0 41 18 147/67 95 Nasal Cannula 2.0 02/26/17 16:00 Nasal Cannula 3.0 Lab Results: Results Past 24 Hours Test 02/27/17 06:25 Range/Units White Blood Count 8.04 4.8-10.8 K/uL Red Blood Count 4.10 4.2-5.4 M/uL Hemoglobin 12.3 12.0-16.0 g/dL Hematocrit 37.4 37-47 % Mean Corpuscular Volume 91.2 80-100 fL Mean Corpuscular Hemoglobin 30.0 25-34 pg Mean Corpuscular Hemoglobin Concent 32.9 32-36 g/dl RDW Standard Deviation 46.5 36.4-46.3 fL RDW Coefficient of Variation 13.9 11.5-14.5 % Platelet Count 177 130-400 K/uL Mean Platelet Volume 10.6 7.4-10.4 fL Sodium Level 143 136-145 mmol/L Potassium Level 3.9 3.5-5.1 mmol/L Chloride Level 109 98-107 mmol/L Carbon Dioxide Level 27 21-32 mmol/L Anion Gap 7.0 3-11 mmol/L Blood Urea Nitrogen 19 7-18 mg/dl Creatinine 0.92 0.60-1.20 mg/dl Est Creatinine Clear Calc Drug Dose 38.6 ml/min Estimated GFR () 64.0 Estimated GFR (Non- 55.2 BUN/Creatinine Ratio 21.0 10-20 Random Glucose 102 70-99 mg/dl Calcium Level 8.6 8.5-10.1 mg/dl Total Bilirubin 0.8 0.2-1 mg/dl Direct Bilirubin 0.2 0-0.2 mg/dl Aspartate Amino Transf (AST/SGOT) 15 15-37 U/L Alanine Aminotransferase (ALT/SGPT) 16 12-78 U/L Alkaline Phosphatase 63 45-117 U/L Total Protein 6.3 6.4-8.2 gm/dl Albumin 2.7 3.4-5.0 gm/dl
[2017-02-27] MEDS: GABAPENTIN 100 MG CAP PO SCH (16:18)
[2017-02-27] MEDS: ACETAMINOPHEN 325 MG TAB PO PRN (16:21)
[2017-02-28] MEDS: CEFTRIAXONE SOD INJ 1 GM in DEXTROSE 5% ADD-VANTAGE 50ML 50 ML IV SCH (00:54)
[2017-02-28] MEDS: ACETAMINOPHEN 325 MG TAB PO PRN (00:58)
[2017-02-28 03:02] VITALS: BP 174/84; PULSE 56; TEMP 36.7; O2SAT 96
[2017-02-28] MEDS ORDERED: NURSING VERBAL MED ORDER ONE (03:15)
[2017-02-28] MEDS ORDERED: HydrALAZINE HCL 20 MG/ML VIAL IV. STA (03:16)
[2017-02-28] MEDS: LEVOTHYROXINE 75 MCG TAB PO SCH (06:21)
[2017-02-28] MEDS: POTASSIUM CHLORIDE 10 MEQ TABCR PO SCH ×2 (07:40→15:53)
[2017-02-28] MEDS: CITALOPRAM 20 MG TAB PO SCH (07:40)
[2017-02-28] MEDS: VESICARE~ORDER AWAITING ACTION SCH ×3 (07:40→23:12)
[2017-02-28] MEDS: ARIPIprazole 1 MG/ML ORAL SOLN 150 ML BTL PO SCH (07:40)
[2017-02-28] MEDS: AMLODIPINE BESYLATE 5 MG TAB PO SCH (07:41)
[2017-02-28] MEDS: LISINOPRIL 20 MG TAB PO SCH (07:41)
[2017-02-28] MEDS: ASPIRIN 81 MG ECTAB PO SCH (07:41)
[2017-02-28] MEDS: HEPARIN SOD 5000 UNIT/0.5 ML CARP SQ SCH ×2 (07:44→21:17)
[2017-02-28 08:04] VITALS: BP 156/80; PULSE 60; TEMP 36.3; O2SAT 92
--- NOTE | 2017-02-28 08:47 | Progress Note ---
Internal Med Progress Note Date of Service: Feb 28, 2017. Provider Documentation: SUBJECTIVE : Patient's mental status is even better today- AAOX1, at her baseline. Does have hacking cough with some sputum production. Tolerating PO well. Denies any chest pain, fever, chills, nausea, vomiting, abd pain On 2 L Tele - Converted to sinus bradycardia with HR in 50-60s OBJECTIVE: Vital Signs-as noted below Exam: General Appearance: AAO X 1, No apparent distress ( pleasant ) Respiratory/Chest: + Decreased breath sounds, + crackles, + rales - Improved Cardiovascular: regular rate, rhythm, no edema Abdomen/GI: normal bowel sounds, non tender, soft Extremities/Musculoskelatal: no pedal edema Neurologic/Psych: + pertinent finding (baseline dementia, oriented to person only ) Lab data as noted below. ASSESSMENT & PLAN: BRADYCARDIA- JUNCTIONAL RHYTHM-->SINUS now HR down to 30s, junctional rhythm during rest and while awake 40-55s. Now Sinus bradycardia with HR in 50-60s -Was on Metoprolol 25 mg PO BID prior to admission- held since admission. Will be discontinued on discharge. -Consulted cardiology- at this point will just monitor. -Troponin x 2 negative, Echo - EF 65-70%, Mild LVH, Gd I diastolic dysfunction ACUTE HYPOXIC RESPIRATORY FAILURE -Improving Secondary to PNEUMONIA Afebrile, Leucocytosis resolved. Continues to have cough and not able to bring up much sputum. -IV Rocephin/Azithromycin (Day 4) (QTC - normal) --> Change to Doxycycline 100 mg PO BID -Blood culture x 2- negative, Influenza screen is negative -CXR on admission- Left perihilar opacity; Repeat CXR- Improved compared to prior one METABOLIC ENCEPHALOPATHY IN SETTING OF DEMENTIA due to above Presented with Lethargy , increased somnolence -Resolved and at her baseline, AAO X 1, pleasantly confused DEMENTIA : Mental status improved to baseline -oriented to person only, pleasant -very poor short term memory and recall -as per family members -Son -baseline mental status HTN -cont ACEI / Norvasc -Metoprolol discontinued due to bradycardia/Junctional rhythm HYPOTHYROIDISM : -Cont levothyroxine -TSH- normal CODE STATUS : Discussed with SON /POA by Dr Heard -has living will DNR /DNI DVT PROPHYLAXIS ; Moderate to high risk SQ Heparin DISPOSITION : Continue to monitor on tele monitor Resident at [facility] dementia unit- return to [facility] when medically stable PT/OT evaluations SS consulted for discharge planning Vital Signs: Date Time Temp Pulse Resp B/P Pulse Ox O2 Delivery O2 Flow Rate FiO2 02/28/17 08:04 36.3 60 18 156/80 92 Nasal Cannula 2.0 02/28/17 08:00 Nasal Cannula 2.0 02/28/17 04:00 Nasal Cannula 2.0 02/28/17 03:02 36.7 56 22 174/84 96 Nasal Cannula 2.0 02/27/17 23:59 Nasal Cannula 2.0 02/27/17 23:48 36.8 58 20 174/90 92 Nasal Cannula 2.0 02/27/17 20:00 92 Room Air 02/27/17 19:32 37.0 55 22 156/80 92 Room Air 02/27/17 16:00 Nasal Cannula 2.0 02/27/17 15:43 37.2 54 22 150/78 94 Nasal Cannula 2.0 02/27/17 12:00 Nasal Cannula 2.0 02/27/17 11:29 37.0 46 20 127/76 92 Nasal Cannula 2.0
[2017-02-28] MEDS ORDERED: AZITHROMYCIN 250 MG TAB PO SCH (09:00)
[2017-02-28] MEDS ORDERED: BENZONATATE 100MG CAP PO PRN (09:00)
[2017-02-28] MEDS ORDERED: DOXYCYCLINE HYCLATE 100 MG CAP PO ONE (09:30)
[2017-02-28] MEDS: GUAIFENESIN 600 MG TABCR PO SCH ×2 (10:16→21:15)
[2017-02-28 11:29] VITALS: BP 167/76; PULSE 66; TEMP 36.9; O2SAT 92
[2017-02-28 15:32] VITALS: BP 168/78; PULSE 72; TEMP 37.3; O2SAT 94
[2017-02-28] MEDS: GABAPENTIN 100 MG CAP PO SCH (15:53)
[2017-02-28 19:28] VITALS: BP 165/84; PULSE 59; TEMP 37.1; O2SAT 91
[2017-02-28] MEDS ORDERED: HydrALAZINE HCL 20 MG/ML VIAL IV. PRN (19:30)
[2017-02-28] MEDS ORDERED: AMLODIPINE BESYLATE 5 MG TAB PO ONE (20:00)
[2017-02-28] MEDS: DOXYCYCLINE HYCLATE 100 MG CAP PO SCH (21:14)
[2017-02-28 23:20] VITALS: BP 146/66; PULSE 53; TEMP 36.7; O2SAT 93
[2017-03-01] VITALS (8 sets, daily range): BP systolic 141–184; BP diastolic 60–87; PULSE 42–78; TEMP 36–36.8; O2SAT 86–99
[2017-03-01] MEDS: LEVOTHYROXINE 75 MCG TAB PO SCH (06:08)
[2017-03-01] MEDS: VESICARE~ORDER AWAITING ACTION SCH ×2 (06:57→16:00)
[2017-03-01] MEDS: POTASSIUM CHLORIDE 10 MEQ TABCR PO SCH ×3 (08:00→18:17)
[2017-03-01] MEDS: CITALOPRAM 20 MG TAB PO SCH ×2 (08:25→09:53)
[2017-03-01] MEDS: ASPIRIN 81 MG ECTAB PO SCH ×2 (08:25→09:54)
[2017-03-01] MEDS: GUAIFENESIN 600 MG TABCR PO SCH ×3 (08:25→21:06)
[2017-03-01] MEDS: AMLODIPINE BESYLATE 5 MG TAB PO SCH ×2 (08:25→09:54)
[2017-03-01] MEDS: ARIPIprazole 1 MG/ML ORAL SOLN 150 ML BTL PO SCH ×2 (08:25→09:53)
[2017-03-01] MEDS: DOXYCYCLINE HYCLATE 100 MG CAP PO SCH ×3 (08:26→21:06)
[2017-03-01] MEDS: LISINOPRIL 20 MG TAB PO SCH ×2 (08:26→09:54)
[2017-03-01] MEDS: HEPARIN SOD 5000 UNIT/0.5 ML CARP SQ SCH ×2 (08:26→21:08)
[2017-03-01 08:36] LABS: HEMATOCRIT 39.5 % (37-47); MEAN CELL VOLUME 89.2 fL (80-100); MEAN CORPUSCULAR HEMOGLOBIN 30.2 pg (25-34); MEAN CORPUSCULAR HGB CONC 33.9 g/dl (32-36); MEAN PLATELET VOLUME 10.1 fL (7.4-10.4); PLATELET COUNT 232 K/uL (130-400); RED BLOOD COUNT 4.43 M/uL (4.2-5.4); WHITE BLOOD COUNT 6.61 K/uL (4.8-10.8)
[2017-03-01 08:53] LABS: BUN/CREATININE RATIO 16.6 (10-20); CALCIUM 8.9 mg/dl (8.5-10.1); CREATININE 0.91 mg/dl (0.60-1.20); POTASSIUM 3.8 mmol/L (3.5-5.1)
--- NOTE | 2017-03-01 09:06 | Progress Note ---
Internal Med Progress Note Date of Service: Mar 01, 2017. Provider Documentation: SUBJECTIVE : Patient is a bit drowsy today- sleepy, but arousable, snoring +. Does have cough with some sputum production. Unable to get much history today as very sleepy. On 2 L oxygen Tele - Sinus bradycardia with HR dropping down to 30s while rest- 40-50s while awake OBJECTIVE: Vital Signs-as noted below Exam: General Appearance: Sleepy, but arousable , No apparent distress Respiratory/Chest: + Decreased breath sounds, + crackles, + rales - Improved Cardiovascular: regular rate, rhythm, no edema Abdomen/GI: normal bowel sounds, non tender, soft Extremities/Musculoskelatal: no pedal edema Neurologic/Psych: + pertinent finding (baseline dementia, oriented to person only ) Lab data as noted below. ASSESSMENT & PLAN: BRADYCARDIA - JUNCTIONAL RHYTHM-->SINUS now HR down to 30s, junctional rhythm -->Sinus dk during rest and while awake 40 -55s. -Was on Metoprolol 25 mg PO BID prior to admission - held since admission. Will be discontinued on discharge. -Consulted cardiology- at this point will just monitor. -Troponin x 2 negative, Echo - EF 65-70%, Mild LVH, Gd I diastolic dysfunction ACUTE HYPOXIC RESPIRATORY FAILURE - Improving Secondary to PNEUMONIA Afebrile, Leucocytosis resolved. Continues to have cough and not able to bring up much sputum. -S/P IV Rocephin/Azithromycin (X DayS 4) (QTC - normal) --> Changed to Doxycycline 100 mg PO BID on 02/28/17 (Day 5 of antibiotics) -Blood culture x 2- negative, Influenza screen is negative -CXR on admission- Left perihilar opacity; Repeat CXR- Improved compared to prior one HTN - Uncontrolled -Continue with Lisinopril 20 mg daily, Increased amlodipine to 10 mg daily. -IV Hydralazine PRN added. May consider increasing Lisinopril if BP continues to be high -Metoprolol discontinued due to bradycardia/Junctional rhythm METABOLIC ENCEPHALOPATHY IN SETTING OF DEMENTIA due to above Presented with Lethargy , increased somnolence -Resolved and at her baseline, AAO X 1, pleasantly confused -Hold Gabapentin as more sleepy today DEMENTIA : Mental status improved to baseline -oriented to person only, pleasant -Very poor short term memory and recall -as per family members -Son -baseline mental status -No behavioral disturbance noted during this admission HYPOTHYROIDISM : -Cont levothyroxine -TSH- normal CODE STATUS : Discussed with SON /POA by Dr Heard -has living will DNR /DNI DVT PROPHYLAXIS ; Moderate to high risk SQ Heparin DISPOSITION : Continue to monitor on tele monitor due to significant bradycardia. Resident at [facility] dementia unit - return to [facility] when medically stable PT/OT evaluation SS consulted for discharge planning Likely discharge in 1-2 days once HR acceptable Vital Signs: Date Time Temp Pulse Resp B/P Pulse Ox O2 Delivery O2 Flow Rate FiO2 03/01/17 07:47 36.5 46 20 156/60 96 Nasal Cannula 2.0 03/01/17 04:26 172/85 03/01/17 03:10 36.3 67 16 183/87 99 Nasal Cannula 2.0 03/01/17 03:10 99 Nasal Cannula 2.0 03/01/17 03:03 36.7 53 19 93 2.0 03/01/17 00:00 Nasal Cannula 2.0 02/28/17 23:20 36.7 53 19 146/66 93 Room Air 02/28/17 20:00 Nasal Cannula 2.0 02/28/17 19:28 37.1 59 20 165/84 91 Room Air 02/28/17 16:00 Nasal Cannula 2.0 02/28/17 15:32 37.3 72 22 168/78 94 Room Air 02/28/17 12:00 Nasal Cannula 2.0 02/28/17 11:29 36.9 66 18 167/76 92 Nasal Cannula 2.0 Lab Results: Results Past 24 Hours Test 03/01/17 07:54 Range/Units White Blood Count 6.61 4.8-10.8 K/uL Red Blood Count 4.43 4.2-5.4 M/uL Hemoglobin 13.4 12.0-16.0 g/dL Hematocrit 39.5 37-47 % Mean Corpuscular Volume 89.2 80-100 fL Mean Corpuscular Hemoglobin 30.2 25-34 pg Mean Corpuscular Hemoglobin Concent 33.9 32-36 g/dl RDW Standard Deviation 43.8 36.4-46.3 fL RDW Coefficient of Variation 13.3 11.5-14.5 % Platelet Count 232 130-400 K/uL Mean Platelet Volume 10.1 7.4-10.4 fL Sodium Level 141 136-145 mmol/L Potassium Level 3.8 3.5-5.1 mmol/L Chloride Level 106 98-107 mmol/L Carbon Dioxide Level 28 21-32 mmol/L Anion Gap 7.0 3-11 mmol/L Blood Urea Nitrogen 15 7-18 mg/dl Creatinine 0.91 0.60-1.20 mg/dl Est Creatinine Clear Calc Drug Dose 41.0 ml/min Estimated GFR () 64.8 Estimated GFR (Non- 55.9 BUN/Creatinine Ratio 16.6 10-20 Random Glucose 100 70-99 mg/dl Calcium Level 8.9 8.5-10.1 mg/dl Total Bilirubin 0.7 0.2-1 mg/dl Direct Bilirubin 0.1 0-0.2 mg/dl Aspartate Amino Transf (AST/SGOT) 14 15-37 U/L Alanine Aminotransferase (ALT/SGPT) 16 12-78 U/L Alkaline Phosphatase 67 45-117 U/L Total Protein 6.8 6.4-8.2 gm/dl Albumin 2.8 3.4-5.0 gm/dl
[2017-03-02 00:14] VITALS: BP 174/83; PULSE 65; TEMP 36.8; O2SAT 95
[2017-03-02 04:51] VITALS: BP 161/81; PULSE 65; TEMP 36.4; O2SAT 94
[2017-03-02] MEDS: LEVOTHYROXINE 75 MCG TAB PO SCH (05:59)
[2017-03-02 07:46] VITALS: BP 164/83; PULSE 75; TEMP 36.5; O2SAT 93
[2017-03-02] MEDS: GUAIFENESIN 600 MG TABCR PO SCH ×2 (08:17→21:16)
[2017-03-02] MEDS: CITALOPRAM 20 MG TAB PO SCH (08:17)
[2017-03-02] MEDS: ASPIRIN 81 MG ECTAB PO SCH (08:17)
[2017-03-02] MEDS: AMLODIPINE BESYLATE 5 MG TAB PO SCH (08:17)
[2017-03-02] MEDS: DOXYCYCLINE HYCLATE 100 MG CAP PO SCH ×2 (08:17→21:17)
[2017-03-02] MEDS: LISINOPRIL 20 MG TAB PO SCH (08:18)
[2017-03-02] MEDS: POTASSIUM CHLORIDE 10 MEQ TABCR PO SCH ×2 (08:19→16:21)
[2017-03-02] MEDS: ARIPIprazole 1 MG/ML ORAL SOLN 150 ML BTL PO SCH (08:19)
[2017-03-02] MEDS: HEPARIN SOD 5000 UNIT/0.5 ML CARP SQ SCH ×2 (08:22→21:21)
[2017-03-02 11:01] VITALS: BP 135/80; PULSE 63; TEMP 36.8; O2SAT 94
[2017-03-02 15:00] VITALS: BP 162/77; PULSE 53; TEMP 36.7; O2SAT 93
--- NOTE | 2017-03-02 15:51 | Progress Note ---
Internal Med Progress Note Date of Service: Mar 02, 2017. Provider Documentation: SUBJECTIVE: Patient is seen and examined at bedside. Patient seems to be more alert today. Complains of mild back pain. Denies any chest pain, SOB. offers no other complaints. OBJECTIVE: Vital Signs-as noted below Physical Exam: General Appearance:Moderately built and nourished, no apparent distress Head: normocephalic, Atraumatic Eyes: normal inspection, EOMI, PERRL Neck: supple, Trachea midline Respiratory/Chest: Normal Vesicular breath sounds, CTA Cardiovascular: S1, S2, + bradycardia No murmur Abdomen/GI:Soft, Non tender, Bowel sounds present Extremities/Musculoskelatal:normal inspection, 1+ edema Neurologic/Psych:AAOX3, grossly no focal neurological deficits Skin: normal color, warm Lab data as noted below. ASSESSMENT & PLAN: BRADYCARDIA - JUNCTIONAL RHYTHM/ SINUS BRADYCARDIA Initially HR down to 30s, junctional rhythm >>>Sinus bradycardia Currently HR improved: High 50s to 60s Metoprolol 25 mg PO BID prior to admission - was discontinued Consulted cardiology-: monitor for now Troponin x 2 negative Echo - EF 65-70%, Mild LVH, grade I diastolic dysfunction ACUTE HYPOXIC RESPIRATORY FAILURE Likely secondary to PNEUMONIA S/P IV Rocephin/Azithromycin (X DayS 4) (QTC - normal) >>>> Changed to Doxycycline 100 mg PO BID on 02/28/17 (Day 6 of antibiotics) Blood culture x 2- negative, Influenza screen is negative CXR on admission- Left perihilar opacity; Repeat CXR- Improved compared to prior one May need 2 step prior to discharge taper off oxygen as able HTN Uncontrolled BB discontinued Increase to Lisinopril 30 mg daily, Cotninue amlodipine to 10 mg daily. IV Hydralazine PRN. METABOLIC ENCEPHALOPATHY IN SETTING OF DEMENTIA due to above Presented with Lethargy , increased somnolence Seems to be resolved Gabapentin held secondary to excessive sleepiness DEMENTIA : Mental status improved to baseline -oriented to person only, pleasant Very poor short term memory and recall -as per family members -Son -baseline mental status No behavioral disturbance noted during this admission HYPOTHYROIDISM : Continue levothyroxine TSH- normal CODE STATUS : Discussed with SON /POA by Dr Heard -has living will DNR /DNI DVT PROPHYLAXIS ; SQ Heparin DISPOSITION : Continue to monitor on tele monitor due to significant bradycardia. Resident at [facility] dementia unit - return to [facility] when medically stable PT/OT SS consulted May need 2 step prior to DC Vital Signs: Date Time Temp Pulse Resp B/P Pulse Ox O2 Delivery O2 Flow Rate FiO2 03/02/17 15:00 36.7 53 18 162/77 93 Nasal Cannula 2.0 03/02/17 12:00 Nasal Cannula 2.0 03/02/17 11:01 36.8 63 22 135/80 94 Nasal Cannula 2.0 03/02/17 08:00 Nasal Cannula 2.0 03/02/17 07:46 36.5 75 18 164/83 93 Room Air 03/02/17 04:51 36.4 65 18 161/81 94 Nasal Cannula 2.0 03/02/17 04:00 Nasal Cannula 2.0 03/02/17 00:14 36.8 65 18 174/83 95 Nasal Cannula 2.0 03/02/17 00:00 Nasal Cannula 2.0 03/01/17 20:19 36.8 78 20 176/74 96 Nasal Cannula 2.0 03/01/17 20:00 Nasal Cannula 2.0
[2017-03-02 19:57] VITALS: BP 132/91; PULSE 49; TEMP 37; O2SAT 96
[2017-03-02] MEDS: VESICARE~ORDER AWAITING ACTION SCH ×2 (20:26)
[2017-03-03] VITALS (7 sets, daily range): BP systolic 110–159; BP diastolic 59–78; PULSE 39–65; TEMP 36.4–36.9; O2SAT 92–97
[2017-03-03] MEDS: LEVOTHYROXINE 75 MCG TAB PO SCH (05:55)
[2017-03-03] MEDS: VESICARE~ORDER AWAITING ACTION SCH ×2 (07:43→16:00)
[2017-03-03] MEDS: POTASSIUM CHLORIDE 10 MEQ TABCR PO SCH ×2 (08:03→17:41)
[2017-03-03] MEDS: CITALOPRAM 20 MG TAB PO SCH (08:08)
[2017-03-03] MEDS: GUAIFENESIN 600 MG TABCR PO SCH ×2 (08:08→19:41)
[2017-03-03] MEDS: ASPIRIN 81 MG ECTAB PO SCH (08:08)
[2017-03-03] MEDS: DOXYCYCLINE HYCLATE 100 MG CAP PO SCH ×2 (08:09→19:41)
[2017-03-03] MEDS: AMLODIPINE BESYLATE 5 MG TAB PO SCH (08:10)
[2017-03-03 09:16] LABS: BUN/CREATININE RATIO 26.9 (10-20); CALCIUM 9.9 mg/dl (8.5-10.1); CREATININE 0.94 mg/dl (0.60-1.20); MAGNESIUM 2.2 mg/dl (1.8-2.4)
[2017-03-03] MEDS: ARIPIprazole 1 MG/ML ORAL SOLN 150 ML BTL PO SCH (09:24)
[2017-03-03] MEDS: LISINOPRIL 10 MG TAB PO SCH (09:24)
[2017-03-03] MEDS: HEPARIN SOD 5000 UNIT/0.5 ML CARP SQ SCH ×2 (09:26→21:09)
--- NOTE | 2017-03-03 11:01 | Cardiology Follow-Up ---
Subjective General Date of Service: Mar 03, 2017. Chief Complaint: pneumonia; bradycardia Pt evaluation today including: conversation w/ patient, physical exam, chart review, lab review, review of studies, review of inpatient medication list History of Present Illness Patient alert to person only. Limited ROS performed. Denies dizziness, lightheadedness or near syncope. Denies chest pain or SOB. Allergies Coded Allergies: Lamotrigine (Verified Allergy, Mild, RASH;WELTS, 02/24/17) Aminoglycosides (Verified Allergy, Unknown, 02/24/17) Replaces BACITRACIN/NE Bacitracin (Verified Allergy, Unknown, 02/24/17) Replaces BACITRACIN/NE Neomycin (Verified Allergy, Unknown, 02/24/17) Replaces BACITRACIN/NE Polymyxin B (Verified Allergy, Unknown, 02/24/17) Replaces BACITRACIN/NE Sulfa Drugs (Verified Allergy, Unknown, 02/24/17) Social History Smoking Status: Former Smoker Hx Tobacco Use In Past Year?: No Problem List Medical Problems: (1) Bradycardia Status: Acute (2) Hypoxia Status: Acute (3) UTI (urinary tract infection) Status: Acute Review of Systems Respiratory: + see HPI Cardiac: + see HPI Physical Exam Vital Signs Last Vital Signs Documentation Date Time Temp Pulse Resp B/P Pulse Ox O2 Delivery O2 Flow Rate FiO2 03/03/17 09:14 94 Room Air 03/03/17 07:25 36.4 39 18 149/61 03/03/17 04:00 2.0 Physical Exam Constitutional: General Apperance: overweight Level of Distress: NAD, chronically ill Psychiatric: Orientation: to person, not oriented to time, not oriented to place Memory: recent memory abnormal, remote memory abnormal Head: normocephalic Eyes: Pupils: PERRLA Neck: supple Lungs: Respiratory effort: no dyspnea Auscultation: breath sounds normal, no wheezing, no rales/crackles Cardiovascular: Heart Auscultation: RRR, normal S1, normal S2, no murmurs Abdomen: Bowel Sounds: normal Inspection & Palpation: soft, non-distended Extremities: no edema Assessment and Plan Assessment and Plan 1. sinus bradycardia with intermittent junctional bradycardia during times of sleep -Lowest HR reported was 30 bpm -No prolonged pauses. -Patient is asymptomatic. -HR improves to 50-60 bpm when awake. -given underlying dementia, advanced age, and the fact she is asymptomatic ( No dizziness, syncope, near syncope) this is not criteria for pacemaker implantation. -patient is DNR. 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 Chatterjee. Patient seen and examined, today complained of headache. Ct head without acute processes. Plan as above Tyler Chatterjee MD Laboratory Results Last 24 Hours Test 03/03/17 08:23 Sodium Level 141 mmol/L Potassium Level 4.0 mmol/L Chloride Level 108 mmol/L Carbon Dioxide Level 24 mmol/L Anion Gap 9.0 mmol/L Blood Urea Nitrogen 25 mg/dl Creatinine 0.94 mg/dl Est Creatinine Clear Calc Drug Dose 37.2 ml/min Estimated GFR () 62.3 Estimated GFR (Non- 53.8 BUN/Creatinine Ratio 26.9 Random Glucose 116 mg/dl Calcium Level 9.9 mg/dl Magnesium Level 2.2 mg/dl
--- NOTE | 2017-03-03 12:45 | Progress Note ---
Internal Med Progress Note Date of Service: Mar 03, 2017. Provider Documentation: SUBJECTIVE: Patient is seen and examined at bedside. Denies any chest pain, SOB, dizziness. Bradycardic this morning. Offers no other complaints. OBJECTIVE: Vital Signs-as noted below Physical Exam: General Appearance:Moderately built and nourished, no apparent distress Head: normocephalic, Atraumatic Eyes: normal inspection, EOMI, PERRL Neck: supple, Trachea midline Respiratory/Chest: Normal Vesicular breath sounds, CTA Cardiovascular: S1, S2, + bradycardia No murmur Abdomen/GI:Soft, Non tender, Bowel sounds present Extremities/Musculoskelatal:normal inspection, 1+ edema Neurologic/Psych:AAOX3, grossly no focal neurological deficits Skin: normal color, warm Lab data as noted below. ASSESSMENT & PLAN: SINUS BRADYCARDIA -INTERMITTENT JUNCTIONAL BRADYCARDIA Intermittently HR is in 30s while asleep Currently HR improved: 50s Metoprolol 25 mg PO BID prior to admission - was discontinued Appreciate cardiology input. Troponin x 2 negative Echo - EF 65-70%, Mild LVH, grade I diastolic dysfunction No prolonged pauses and patient is asymptomatic. Given H/O dementia, advanced age, and patient being asymptomatic: pacemaker implantation is not indicated ACUTE HYPOXIC RESPIRATORY FAILURE Likely secondary to PNEUMONIA S/P IV Rocephin/Azithromycin (X DayS 4) (QTC - normal) >>>> Changed to Doxycycline 100 mg PO BID on 02/28/17 (Day 7 of antibiotics) Blood culture x 2- negative, Influenza screen is negative CXR on admission- Left perihilar opacity; Repeat CXR- Improved compared to prior one May need 2 step prior to discharge taper off oxygen as able HTN Better BB discontinued Continue Lisinopril 30 mg daily, Continue amlodipine 10 mg daily. IV Hydralazine PRN. METABOLIC ENCEPHALOPATHY IN SETTING OF DEMENTIA due to above Presented with Lethargy , increased somnolence Seems to be resolved Gabapentin held secondary to excessive sleepiness DEMENTIA : Mental status improved to baseline -oriented to person only, pleasant Very poor short term memory and recall -as per family members -Son -baseline mental status No behavioral disturbance noted during this admission HYPOTHYROIDISM : Continue levothyroxine TSH- normal CODE STATUS : Discussed with SON /POA by Dr Heard -has living will DNR /DNI DVT PX: SQ Heparin DISPOSITION : Resident at [facility] dementia unit - return to [facility] Plan to discharge in 1-2 days if stable PT/OT SS consulted May need 2 step prior to DC Vital Signs: Date Time Temp Pulse Resp B/P Pulse Ox O2 Delivery O2 Flow Rate FiO2 03/03/17 11:38 36.9 45 18 159/59 94 Nasal Cannula 2.0 03/03/17 09:14 94 Room Air 03/03/17 08:00 Room Air 03/03/17 07:25 36.4 39 18 149/61 97 Room Air 03/03/17 04:48 36.6 52 15 151/67 97 Room Air 03/03/17 04:00 Nasal Cannula 2.0 03/03/17 00:19 36.5 65 18 148/78 93 2.0 03/03/17 00:00 Nasal Cannula 2.0 03/02/17 20:25 Nasal Cannula 2.0 03/02/17 19:57 37.0 49 18 132/91 96 Nasal Cannula 2.0 03/02/17 16:00 Nasal Cannula 2.0 03/02/17 15:00 36.7 53 18 162/77 93 Nasal Cannula 2.0 Lab Results: Results Past 24 Hours Test 03/03/17 08:23 Range/Units Sodium Level 141 136-145 mmol/L Potassium Level 4.0 3.5-5.1 mmol/L Chloride Level 108 98-107 mmol/L Carbon Dioxide Level 24 21-32 mmol/L Anion Gap 9.0 3-11 mmol/L Blood Urea Nitrogen 25 7-18 mg/dl Creatinine 0.94 0.60-1.20 mg/dl Est Creatinine Clear Calc Drug Dose 37.2 ml/min Estimated GFR () 62.3 Estimated GFR (Non- 53.8 BUN/Creatinine Ratio 26.9 10-20 Random Glucose 116 70-99 mg/dl Calcium Level 9.9 8.5-10.1 mg/dl Magnesium Level 2.2 1.8-2.4 mg/dl
--- NOTE | 2017-03-03 15:24 | DIAGNOSTIC IMAGING REPORT ---
CT SCAN OF THE BRAIN WITHOUT IV CONTRAST CLINICAL HISTORY: Headache. Change in mental status. COMPARISON STUDY: CT of the brain dated 04/01/2009. TECHNIQUE: Unenhanced axial CT scan of the brain is performed from the vertex to the skull base. CT DOSE: 1441.90 mGycm FINDINGS: Brain parenchyma: There are age-related involutional changes noting advanced confluent subcortical and periventricular microangiopathic change. 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 There is no hemorrhage, mass effect, or evidence of acute territorial ischemia by CT criteria. Bernal-white matter is preserved. No extra-axial fluid collection is seen. Ventricles, sulci, cisterns: Prominent secondary to involutional change. Intracranial vasculature: There is atherosclerotic calcification of the cavernous carotid and vertebral arteries. Calvarium: Unremarkable. Sinuses and mastoids: The visualized paranasal sinuses are clear. The mastoid air cells are well pneumatized. Orbits: The bony orbits are grossly intact. There are bilateral ocular lens implants. IMPRESSION: Senescent changes as above with no hemorrhage, mass effect, or evidence of acute territorial ischemia by CT criteria. Electronically signed by: Grady Peña M.D. 03/03/2017 3:22 PM Dictated Date/Time: 03/03/2017 3:20 PM
[2017-03-04] MEDS: LEVOTHYROXINE 75 MCG TAB PO SCH (06:32)
[2017-03-04 07:51] VITALS: BP 156/82; PULSE 45; TEMP 36.2; O2SAT 95
[2017-03-04 08:51] LABS: BUN/CREATININE RATIO 32.1 (10-20); MAGNESIUM 2.1 mg/dl (1.8-2.4); POTASSIUM 4.1 mmol/L (3.5-5.1)
[2017-03-04] MEDS: VESICARE~ORDER AWAITING ACTION SCH ×4 (08:55→23:13)
[2017-03-04] MEDS: LISINOPRIL 10 MG TAB PO SCH (08:55)
[2017-03-04] MEDS: ARIPIprazole 1 MG/ML ORAL SOLN 150 ML BTL PO SCH (08:55)
[2017-03-04] MEDS: GUAIFENESIN 600 MG TABCR PO SCH ×2 (08:56→20:14)
[2017-03-04] MEDS: POTASSIUM CHLORIDE 10 MEQ TABCR PO SCH ×2 (08:56→16:39)
[2017-03-04] MEDS: ASPIRIN 81 MG ECTAB PO SCH (08:56)
[2017-03-04] MEDS: DOXYCYCLINE HYCLATE 100 MG CAP PO SCH ×2 (08:56→20:14)
[2017-03-04] MEDS: AMLODIPINE BESYLATE 5 MG TAB PO SCH (08:56)
[2017-03-04] MEDS: CITALOPRAM 20 MG TAB PO SCH (08:56)
[2017-03-04 09:01] LABS: CALCIUM 9.8 mg/dl (8.5-10.1)
[2017-03-04] MEDS: HEPARIN SOD 5000 UNIT/0.5 ML CARP SQ SCH ×2 (09:07→20:17)
[2017-03-04] MEDS ORDERED: NURSING VERBAL MED ORDER ONE (13:45)
--- NOTE | 2017-03-04 14:36 | Neurology Consultation ---
Neurology Consultation Date of Consultation: Mar 04, 2017. Attending Physician: Gualberto Degroot MD Primary Care Physician: [facility] Reason for Consultation: encephalopathy History of Present Illness Violette Yoo is an 87 year old female who has a history of dementia and resides at [facility]. She was sent to the ED when she became lethargic, increased confusion, fever and ongoing cough +difficulty breathing. 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 there is no family in the room. Nursing states she was doing better after the treatment of the pneumonia and UTI treatment but this am she didn't want to eat and was hard to arouse which was similar to what brought her into the hospital. She is currently lying in bed and is answering questions but she is somewhat confused. she states she is having some neck and back pain. denies CP, SOB, abdominal pain, N, V Past Medical/Surgical History Medical Problems: (1) Bradycardia Status: Acute (2) Hypoxia Status: Acute (3) UTI (urinary tract infection) Status: Acute Social History Marital Status: Housing Status: assisted living Occupation Status: unemployed Allergies Coded Allergies: Lamotrigine (Verified Allergy, Mild, RASH;WELTS, 02/24/17) Aminoglycosides (Verified Allergy, Unknown, 02/24/17) Replaces BACITRACIN/NE Bacitracin (Verified Allergy, Unknown, 02/24/17) Replaces BACITRACIN/NE Neomycin (Verified Allergy, Unknown, 02/24/17) Replaces BACITRACIN/NE Polymyxin B (Verified Allergy, Unknown, 02/24/17) Replaces BACITRACIN/NE Sulfa Drugs (Verified Allergy, Unknown, 02/24/17) Current Inpatient Medications Current Inpatient Medications Medications (Trade) Dose Ordered Sig/Boo Route Start Time Stop Time Status Last Admin Dose Admin Heparin Sodium (Porcine) (Heparin Sq 5000 Unit/0.5ml) 5,000 unit Q12 SQ 02/25/17 09:00 03/27/17 08:59 03/04/17 09:07 5,000 UNIT Al Hydrox/Mg Hydrox/Simethicone (Maalox Max Susp) 15 ml Q4H PRN PO 02/25/17 00:15 03/27/17 00:14 Future Hold Magnesium Hydroxide (Milk Of Magnesia Susp) 30 ml Q12H PRN PO 02/25/17 00:15 03/27/17 00:14 02/25/17 17:58 30 ML Ondansetron HCl (Zofran Inj) 4 mg Q6H PRN IV 02/25/17 00:15 03/27/17 00:14 Polyethylene (Miralax Powder Packet) 17 gm DAILY PRN PO 02/25/17 00:15 03/27/17 00:14 Acetaminophen (Tylenol Tab) 650 mg Q4H PRN PO 02/25/17 00:30 03/27/17 00:29 Future Hold 02/28/17 00:58 650 MG Aspirin (Ecotrin Tab) 81 mg QAM PO 02/25/17 09:00 03/27/17 08:59 03/04/17 08:56 81 MG Citalopram Hydrobromide (celeXA TAB) 20 mg QAM PO 02/25/17 09:00 03/27/17 08:59 Future Hold 03/04/17 08:56 20 MG Docusate Sodium (coLACE CAP) 100 mg DAILY PRN PO 02/25/17 00:30 03/27/17 00:29 Gabapentin (Neurontin Cap) 100 mg DAILY@1600 PO 02/25/17 16:00 03/27/17 15:59 Future Hold 02/28/17 15:53 100 MG Levothyroxine Sodium (Synthroid Tab) 75 mcg DAILYBB PO 02/25/17 06:00 03/27/17 05:59 03/04/17 06:32 75 MCG Loperamide HCl (Imodium Cap) 2 mg Q4H PRN PO 02/25/17 00:30 03/27/17 00:29 Potassium Chloride (Klor-Con M10) 10 meq BIDM PO 02/25/17 07:30 03/27/17 07:59 03/04/17 08:56 10 MEQ Aripiprazole (Abilify Soln) 2 mg QAM PO 02/25/17 09:00 03/27/17 08:59 03/04/17 08:55 2 MG Miscellaneous Information (Order Awaiting Action) 1 ea QS N/A 02/25/17 08:00 03/27/17 07:59 Guaifenesin (Mucinex Contr Rel Tab) 600 mg Q12 PO 02/28/17 09:00 03/30/17 08:59 03/04/17 08:56 600 MG Benzonatate (Tessalon Perles Cap) 100 mg TID PRN PO 02/28/17 09:00 03/30/17 08:59 Doxycycline Hyclate (Vibramycin Cap) 100 mg BID PO 02/28/17 21:00 03/07/17 20:59 03/04/17 08:56 100 MG Amlodipine Besylate (Norvasc Tab) 10 mg QAM PO 03/01/17 09:00 03/31/17 08:59 03/04/17 08:56 10 MG Hydralazine HCl (HydrALAZINE INJ) 10 mg Q8H PRN IV. 02/28/17 19:30 03/30/17 19:29 Lisinopril (Zestril Tab) 30 mg QAM PO 03/03/17 09:00 04/02/17 08:59 03/04/17 08:55 30 MG Physical Exam Vital Signs (Past 24 Hrs): Date Time Temp Pulse Resp B/P Pulse Ox O2 Delivery O2 Flow Rate FiO2 03/04/17 08:30 Room Air 03/04/17 07:51 36.2 45 20 156/82 95 Room Air 03/04/17 00:00 Room Air 03/03/17 23:35 36.9 50 18 143/72 92 Room Air 03/03/17 20:00 Room Air 03/03/17 17:23 Room Air 03/03/17 15:14 36.7 61 18 110/67 94 Room Air Physical Exam: Constitutional: appearance nourished, healthy and obese, no nuchal rigidity Ears, Nose, Mouth and Throat: mucous membranes moist, no injection and skin normal, eyes normal Cardiovascular: normal S-1 and S-2 and regular rate and rhythm Respiratory: bilateral wheezing with inspiration Musculoskeletal: non pitting LE edema Skin: no stigmata of neurocutaneous disease noted and normal and intact Eyes: extraocular muscles intact (EOMI) and pupils equal, round and reactive to light (PERRL) NEUROLOGIC EXAMINATION: Mental status: Alert and interactive, very MILLE LACS Oriented to person, she knows she is in the hospital, and she is sick. unable to remember 3 words. Speech some expressive aphasia Cranial Nerves smile with slight right sided flattening of the nasolabial fold may be due to not having dentures, eye brow raise symmetric Reflexes: Deep tendon reflexes were symmetrical and graded 2/5. Plantar responses were flexor., no clonus Sensory: to light touch or vibration Coordination: finger to nose without bipass, raise arms in arm with command Gait/Stance: Posture lying in bed Motor: Negative for pronator drift of out stretched arms with eyes closed. 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 no acute findings. large amount of volume loss Impression 87 year old female baseline dementia with increased lethargy on admission/ pneumonia, UTI -treated Plan 1. patient is responsive and cooperative with exam - may be waxing and weaning of dementia 2. correct any lyte abnormalities 3. pneumonia treated no longer febrile/ no longer requiring O2 4. vit D, thiamine, B12, folate, RPR ordered for possible correctable causes 5. MRI with and without contrast to evaluate for any new infarcts 6. family imput for any further testing would be helpful for direction of care 7. complaints of a headache but no meningeal signs 8. neurontin 100 mg as out patient held not sure what was been treated but no need to restart 9. will be available for any further questions or concerns. likely hospital delirium superimposed on dementia. If further follow up is needed for dementia she can follow up with Dr Das, neurology as an out patient. will sign off for now. I have seen and discussed above patient with Dr Antonia Eason, neurology Pt seen and discussed with SUZETTE Arguello. CT head reviewed.Today she is awake, mildly sleepy oriented to year, person place. Memory 0/3 at three minutes. No aphasia. There are no carotid bruits. No temporal artery tenderness , neck supple. Perrla, unable to vis ON, nml tucker, motility, equal strength. Imp,while the pt may have appeared delirious she is not currently and appears to have a mild dementia. I see no evidence of a new central process. When asked she had minor complaint of headache. I see no concerning signs on exam or by history. If headache persists would consider checking an ESR and MRI brain. RE hx of dementia, if desired pt can see Dr. Das as outpt, whom she has seen before. Will sign off. RITESH Eason MD
--- NOTE | 2017-03-04 14:48 | Progress Note ---
Internal Med Progress Note Date of Service: Mar 04, 2017. Provider Documentation: SUBJECTIVE: Patient is seen and examined at bedside. More alert, awake today. Oriented to self and place. Able to follow commands. States having mild abd pain. Denies any chest pain, SOB, dizziness. Offers no other complaints. OBJECTIVE: Vital Signs-as noted below Physical Exam: General Appearance:Moderately built and nourished, no apparent distress Head: normocephalic, Atraumatic Eyes: normal inspection, EOMI, PERRL Neck: supple, Trachea midline Respiratory/Chest: Normal breath sounds, CTA Cardiovascular: S1, S2, + bradycardia No murmur Abdomen/GI:Soft, Non tender, Bowel sounds present Extremities/Musculoskelatal:normal inspection, 1+ edema Neurologic/Psych:Grossly no focal neurological deficits, able to move all extremities Skin: normal color, warm Lab data as noted below. ASSESSMENT & PLAN: SINUS BRADYCARDIA -INTERMITTENT JUNCTIONAL BRADYCARDIA Intermittently HR is in 30s while asleep Currently HR improved: 50s Metoprolol 25 mg PO BID prior to admission - was discontinued Appreciate cardiology input. Troponin x 2 negative Echo - EF 65-70%, Mild LVH, grade I diastolic dysfunction No prolonged pauses and patient is asymptomatic. Given H/O dementia, advanced age, and patient being asymptomatic: pacemaker implantation is not indicated CT head without acute processes ABDOMINAL PAIN: Decreased appetite per staff Check KUB ACUTE HYPOXIC RESPIRATORY FAILURE Likely secondary to PNEUMONIA S/P IV Rocephin/Azithromycin (X DayS 4) (QTC - normal) >>>> Changed to Doxycycline 100 mg PO BID on 02/28/17 (Day 7 of antibiotics) Blood culture x 2- negative, Influenza screen is negative CXR on admission- Left perihilar opacity; Repeat CXR- Improved compared to prior one May need 2 step prior to discharge taper off oxygen as able HTN Better BB discontinued Continue Lisinopril 30 mg daily, Continue amlodipine 10 mg daily. IV Hydralazine PRN. METABOLIC ENCEPHALOPATHY IN SETTING OF DEMENTIA Increased lethargy per family CT Head: No acute pathology Neurology consulted for further eval Neurotin was held secondary to increased lethargy Plan to hold Celexa as well Work up: vit D, thiamine, B12, folate, RPR per Neurology Plan for MRI if needed per Neurology DEMENTIA : Very poor short term memory and recall -as per family members No behavioral disturbance noted during this admission HYPOTHYROIDISM : Continue levothyroxine TSH- normal CODE STATUS : Discussed with SON /POA by Dr Heard -has living will DNR /DNI DVT PX: SQ Heparin DISPOSITION : Resident at [facility] dementia unit - return to [facility] Plan to discharge to [facility] when stable PT/OT SS consulted Vital Signs: Date Time Temp Pulse Resp B/P Pulse Ox O2 Delivery O2 Flow Rate FiO2 03/04/17 08:30 Room Air 03/04/17 07:51 36.2 45 20 156/82 95 Room Air 03/04/17 00:00 Room Air 03/03/17 23:35 36.9 50 18 143/72 92 Room Air 03/03/17 20:00 Room Air 03/03/17 17:23 Room Air 03/03/17 15:14 36.7 61 18 110/67 94 Room Air Lab Results: Results Past 24 Hours Test 03/04/17 07:27 03/04/17 14:28 03/04/17 14:29 Range/Units Sodium Level 143 136-145 mmol/L Potassium Level 4.1 3.5-5.1 mmol/L Chloride Level 110 98-107 mmol/L Carbon Dioxide Level 25 21-32 mmol/L Anion Gap 8.0 3-11 mmol/L Blood Urea Nitrogen 32 7-18 mg/dl Creatinine 1.00 0.60-1.20 mg/dl Est Creatinine Clear Calc Drug Dose 35.0 ml/min Estimated GFR () 57.8 Estimated GFR (Non- 49.9 BUN/Creatinine Ratio 32.1 10-20 Random Glucose 123 70-99 mg/dl Calcium Level 9.8 8.5-10.1 mg/dl Magnesium Level 2.1 1.8-2.4 mg/dl
--- NOTE | 2017-03-04 16:04 | DIAGNOSTIC IMAGING REPORT ---
KUB HISTORY: Generalized Abdominal pain COMPARISON: None. FINDINGS: The bowel gas pattern is unremarkable. There are no dilated loops of small bowel to suggest an obstruction. No renal calculi. No ureteral calculi. No pneumoperitoneum or pneumatosis. Mild levoscoliosis of the lumbar spine. The lung bases appear clear. IMPRESSION: Unremarkable bowel gas pattern. No evidence for bowel obstruction. Electronically signed by: Maximilian Ham M.D. 03/04/2017 4:02 PM Dictated Date/Time: 03/04/2017 3:57 PM
[2017-03-04 16:16] VITALS: BP 92/59; PULSE 45; TEMP 36.4; O2SAT 91
[2017-03-04] MEDS: ACETAMINOPHEN 325 MG TAB PO PRN (17:01)
[2017-03-04] MEDS ORDERED: GADAVIST IV PRN (22:15)
--- NOTE | 2017-03-04 22:22 | DIAGNOSTIC IMAGING REPORT ---
MRI OF THE BRAIN WITHOUT AND WITH IV CONTRAST CLINICAL HISTORY: Pneumonia. Evaluate for stroke. COMPARISON STUDY: MRI of the brain January 23, [address] March 03, 2017. TECHNIQUE: Utilizing a 1.5 Justina magnet and dedicated coil, multiplanar, multiecho imaging of the brain was performed pre and postcontrast administration. IV administration of 8 mL of Gadavist contrast was uneventful. FINDINGS: This exam is mildly compromised by motion artifact although is diagnostic. There are no areas of restricted diffusion. No acute intracranial hemorrhage, midline shift or mass effect is present. Ventricular dilatation is unchanged from MRI of January 23, 2014 and likely due to atrophy. This is proportional to sulcal enlargement. There is no intracranial mass or pathologic enhancement. Extensive white matter T2 hyperintensity suggest small vessel disease. There is moderate to marked cerebral atrophy. Calvarium is intact. Orbits and sinuses are unremarkable. There is trace fluid within the right mastoid air cells. Old basal ganglia lacunar infarcts are noted. IMPRESSION: 1. No acute intracranial findings. 2. No intracranial mass or pathologic enhancement. 3. No change in appearance of the brain since MRI of January 23, 2014. 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 Electronically signed by: Azam Carbajal M.D. 03/04/2017 10:20 PM Dictated Date/Time: 03/04/2017 10:15 PM
[2017-03-04 22:28] VITALS: BP 126/69; PULSE 39; TEMP 36.6; O2SAT 92
[2017-03-05] MEDS: LEVOTHYROXINE 75 MCG TAB PO SCH (05:36)
[2017-03-05 06:24] LABS: BASO % 0.6 %; BASO ABS # 0.03 K/uL (0-0.2); COMPLETE YES; EOS % 2.4 %; IG% 0.4 %; LYMPH % 30.2 %; LYMPH ABS # 1.49 K/uL (1.2-3.4); MEAN CELL VOLUME 90.3 fL (80-100); MEAN CORPUSCULAR HEMOGLOBIN 30.8 pg (25-34); MEAN CORPUSCULAR HGB CONC 34.1 g/dl (32-36); MEAN PLATELET VOLUME 9.8 fL (7.4-10.4); MONO % 14.2 %; NEUT % 52.2 %; PLATELET COUNT 277 K/uL (130-400); RED BLOOD COUNT 4.87 M/uL (4.2-5.4); WHITE BLOOD COUNT 4.93 K/uL (4.8-10.8)
[2017-03-05 07:14] LABS: BUN/CREATININE RATIO 26.3 (10-20); CALCIUM 9.4 mg/dl (8.5-10.1); CREATININE 1.1 mg/dl (0.60-1.20); MAGNESIUM 2.3 mg/dl (1.8-2.4)
[2017-03-05 07:49] VITALS: BP 131/53; PULSE 42; TEMP 36.4; O2SAT 90
[2017-03-05] MEDS: VESICARE~ORDER AWAITING ACTION SCH ×2 (08:00→15:39)
[2017-03-05] MEDS: DOXYCYCLINE HYCLATE 100 MG CAP PO SCH ×2 (08:25→19:30)
[2017-03-05] MEDS: ARIPIprazole 1 MG/ML ORAL SOLN 150 ML BTL PO SCH (08:25)
[2017-03-05] MEDS: AMLODIPINE BESYLATE 5 MG TAB PO SCH (08:26)
[2017-03-05] MEDS: ASPIRIN 81 MG ECTAB PO SCH (08:26)
[2017-03-05] MEDS: GUAIFENESIN 600 MG TABCR PO SCH ×2 (08:26→19:30)
[2017-03-05] MEDS: POTASSIUM CHLORIDE 10 MEQ TABCR PO SCH ×2 (08:26→16:55)
[2017-03-05] MEDS: LISINOPRIL 10 MG TAB PO SCH (08:27)
[2017-03-05] MEDS: HEPARIN SOD 5000 UNIT/0.5 ML CARP SQ SCH ×2 (08:32→19:32)
--- NOTE | 2017-03-05 13:53 | Progress Note ---
Internal Med Progress Note Date of Service: Mar 05, 2017. Provider Documentation: SUBJECTIVE: Patient is seen and examined at bedside. Mental status seemed to be back to baseline. States having persistent occipital headache. Denies any blurry vision , dizziness, chest pain, SOB. Offers no other complaints. OBJECTIVE: Vital Signs-as noted below Physical Exam: General Appearance:Moderately built and nourished, no apparent distress Head: normocephalic, Atraumatic Eyes: normal inspection, EOMI, PERRL Neck: supple, Trachea midline Respiratory/Chest: Normal breath sounds, CTA Cardiovascular: S1, S2, + bradycardia No murmur Abdomen/GI:Soft, Non tender, Bowel sounds present Extremities/Musculoskelatal:normal inspection, 1+ edema Neurologic/Psych:Grossly no focal neurological deficits, able to move all extremities Skin: normal color, warm Lab data as noted below. ASSESSMENT & PLAN: SINUS BRADYCARDIA -INTERMITTENT JUNCTIONAL BRADYCARDIA Intermittently HR is in 30s while asleep Currently HR: 40s Metoprolol 25 mg PO BID prior to admission - was discontinued Appreciate cardiology input. Troponin x 2 negative Echo - EF 65-70%, Mild LVH, grade I diastolic dysfunction No prolonged pauses and patient is asymptomatic. Given H/O dementia, advanced age, and patient being asymptomatic: pacemaker implantation is not indicated CT/MRI head without acute processes HEADACHE: MRI Brain:No acute pathology Check ESR ABDOMINAL PAIN: Resolved KUB: Unremarkable bowel gas pattern. No evidence for bowel obstruction. ACUTE HYPOXIC RESPIRATORY FAILURE Likely secondary to PNEUMONIA S/P IV Rocephin/Azithromycin (X DayS 4) (QTC - normal) >>>> Changed to Doxycycline 100 mg PO BID on 02/28/17 (Day 7 of antibiotics) Blood culture x 2- negative, Influenza screen is negative CXR on admission- Left perihilar opacity; Repeat CXR- Improved compared to prior one May need 2 step prior to discharge Currently saturating 92% on RA HTN Controlled BB discontinued secondary to bradycardia Continue Lisinopril 30 mg daily, Continue amlodipine 10 mg daily. IV Hydralazine PRN. METABOLIC ENCEPHALOPATHY IN SETTING OF DEMENTIA Likely delirium Seemed to be back at baseline CT/MRI Head: No acute pathology Appreciate Neurology input Plan to resume Neurotin today which was held secondary to increased lethargy Plan to hold Celexa for now DEMENTIA : Very poor short term memory and recall -as per family members No behavioral disturbance noted during this admission HYPOTHYROIDISM : Continue levothyroxine TSH- normal CODE STATUS : Discussed with SON /POA by Dr Heard -has living will DNR /DNI DVT PX: SQ Heparin DISPOSITION : Resident at [facility] dementia unit - return to [facility] Plan to discharge to [facility] tomorrow if stable PT/OT SS consulted PROCEDURES: MRI Brain: 1. No acute intracranial findings. 2. No intracranial mass or pathologic enhancement. 3. No change in appearance of the brain since MRI of January 23, 2014. 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 Vital Signs: Date Time Temp Pulse Resp B/P Pulse Ox O2 Delivery O2 Flow Rate FiO2 03/05/17 08:00 Room Air 03/05/17 07:49 36.4 42 18 131/53 90 Room Air 03/05/17 00:15 Room Air 03/04/17 22:28 36.6 39 18 126/69 92 Room Air 03/04/17 16:16 36.4 45 16 92/59 91 Room Air 03/04/17 16:00 Room Air Lab Results: Results Past 24 Hours Test 03/04/17 15:09 03/04/17 16:20 03/05/17 06:10 03/05/17 13:40 Range/Units Vitamin B12 Level 348 211-911 pg/mL 25-Hydroxy Vitamin D Total 18.3 30-100 ng/ml Folate 22.79 >5.38 ng/mL Rapid Plasma Reagin NONREACTIVE NONREACT White Blood Count 4.93 4.8-10.8 K/uL Red Blood Count 4.87 4.2-5.4 M/uL Hemoglobin 15.0 12.0-16.0 g/dL Hematocrit 44.0 37-47 % Mean Corpuscular Volume 90.3 80-100 fL Mean Corpuscular Hemoglobin 30.8 25-34 pg Mean Corpuscular Hemoglobin Concent 34.1 32-36 g/dl Platelet Count 277 130-400 K/uL Mean Platelet Volume 9.8 7.4-10.4 fL Neutrophils (%) (Auto) 52.2 % Lymphocytes (%) (Auto) 30.2 % Monocytes (%) (Auto) 14.2 % Eosinophils (%) (Auto) 2.4 % Basophils (%) (Auto) 0.6 % Neutrophils # (Auto) 2.57 1.4-6.5 K/uL Lymphocytes # (Auto) 1.49 1.2-3.4 K/uL Monocytes # (Auto) 0.70 0.11-0.59 K/uL Eosinophils # (Auto) 0.12 0-0.5 K/uL Basophils # (Auto) 0.03 0-0.2 K/uL RDW Standard Deviation 45.1 36.4-46.3 fL RDW Coefficient of Variation 13.6 11.5-14.5 % Immature Granulocyte % (Auto) 0.4 % Immature Granulocyte # (Auto) 0.02 0.00-0.02 K/uL Sodium Level 145 136-145 mmol/L Potassium Level 4.0 3.5-5.1 mmol/L Chloride Level 111 98-107 mmol/L Carbon Dioxide Level 21 21-32 mmol/L Anion Gap 13.0 3-11 mmol/L Blood Urea Nitrogen 29 7-18 mg/dl Creatinine 1.10 0.60-1.20 mg/dl Est Creatinine Clear Calc Drug Dose 31.8 ml/min Estimated GFR () 51.5 Estimated GFR (Non- 44.5 BUN/Creatinine Ratio 26.3 10-20 Random Glucose 113 70-99 mg/dl Calcium Level 9.4 8.5-10.1 mg/dl Magnesium Level 2.3 1.8-2.4 mg/dl
[2017-03-05 15:42] VITALS: BP 136/64; PULSE 43; TEMP 36.4; O2SAT 92
[2017-03-05] MEDS: GABAPENTIN 100 MG CAP PO SCH (16:54)
[2017-03-05] MEDS: ACETAMINOPHEN 325 MG TAB PO PRN (19:30)
[2017-03-05 23:57] VITALS: BP 159/64; PULSE 42; TEMP 36.6; O2SAT 92
[2017-03-06] MEDS ORDERED: LISINOPRIL 10 MG TAB PO SCH
[2017-03-06] MEDS: ACETAMINOPHEN 325 MG TAB PO PRN ×2 (05:01→13:49)
[2017-03-06] MEDS: LEVOTHYROXINE 75 MCG TAB PO SCH (06:20)
[2017-03-06 07:57] VITALS: BP 143/61; PULSE 38; TEMP 36.5; O2SAT 92
[2017-03-06 08:00] VITALS: PULSE 40
[2017-03-06] MEDS: POTASSIUM CHLORIDE 10 MEQ TABCR PO SCH (09:01)
[2017-03-06] MEDS: GUAIFENESIN 600 MG TABCR PO SCH (09:01)
[2017-03-06] MEDS: HEPARIN SOD 5000 UNIT/0.5 ML CARP SQ SCH (09:01)
[2017-03-06] MEDS: ASPIRIN 81 MG ECTAB PO SCH (09:02)
[2017-03-06] MEDS: DOXYCYCLINE HYCLATE 100 MG CAP PO SCH (09:02)
[2017-03-06] MEDS: ARIPIprazole 1 MG/ML ORAL SOLN 150 ML BTL PO SCH (09:03)
[2017-03-06] MEDS: LISINOPRIL 10 MG TAB PO SCH (09:03)
[2017-03-06] MEDS: VESICARE~ORDER AWAITING ACTION SCH ×2 (09:04)
[2017-03-06] MEDS: AMLODIPINE BESYLATE 5 MG TAB PO SCH (09:08)
[2017-03-06 11:55] VITALS: BP 145/88; PULSE 50; O2SAT 98
--- NOTE | 2017-03-06 11:55 | Progress Note ---
Internal Med Progress Note Date of Service: Mar 06, 2017. Provider Documentation: SUBJECTIVE: Patient is seen and examined at bedside. Mental status seemed to be back to baseline. States having persistent occipital headache. Denies any blurry vision , dizziness, chest pain, SOB. Offers no other complaints. OBJECTIVE: Vital Signs-as noted below Physical Exam: General Appearance:Moderately built and nourished, no apparent distress Head: normocephalic, Atraumatic Eyes: normal inspection, EOMI, PERRL Neck: supple, Trachea midline Respiratory/Chest: Normal breath sounds, CTA Cardiovascular: S1, S2, + bradycardia No murmur Abdomen/GI:Soft, Non tender, Bowel sounds present Extremities/Musculoskelatal:normal inspection, 1+ edema Neurologic/Psych:Grossly no focal neurological deficits, able to move all extremities Skin: normal color, warm Lab data as noted below. ASSESSMENT & PLAN: SINUS BRADYCARDIA -INTERMITTENT JUNCTIONAL BRADYCARDIA Intermittently HR is in 30s while asleep Currently HR: 40s Metoprolol 25 mg PO BID prior to admission - was discontinued Appreciate cardiology input. Troponin x 2 negative Echo - EF 65-70%, Mild LVH, grade I diastolic dysfunction No prolonged pauses and patient is asymptomatic. Given H/O dementia, advanced age, and patient being asymptomatic: pacemaker implantation is not indicated CT/MRI head without acute processes HEADACHE: MRI Brain:No acute pathology ESR: mild elevation ABDOMINAL PAIN: Resolved KUB: Unremarkable bowel gas pattern. No evidence for bowel obstruction. ACUTE HYPOXIC RESPIRATORY FAILURE Likely secondary to PNEUMONIA S/P IV Rocephin/Azithromycin (X DayS 4) (QTC - normal) >>>> Changed to Doxycycline 100 mg PO BID on 02/28/17 (Completed 5 days) Blood culture x 2- negative, Influenza screen is negative CXR on admission- Left perihilar opacity; Repeat CXR- Improved compared to prior one Currently saturating 92% on RA HTN Controlled BB discontinued secondary to bradycardia Continue Lisinopril 30 mg daily, Continue amlodipine 10 mg daily. IV Hydralazine PRN. METABOLIC ENCEPHALOPATHY IN SETTING OF DEMENTIA Likely delirium Seemed to be back at baseline CT/MRI Head: No acute pathology Appreciate Neurology input Mental status at baseline per patient's son (Discussed on 03/06/17) DEMENTIA : Very poor short term memory and recall -as per family members No behavioral disturbance noted during this admission HYPOTHYROIDISM : Continue levothyroxine TSH- normal CODE STATUS : Discussed with SON /POA by Dr Heard -has living will DNR /DNI Spoke with patient's son and updated today that patient will be discharged to [facility] DVT PX: SQ Heparin DISPOSITION : Resident at [facility] dementia unit - return to [facility] Plan to discharge to [facility] today Follow up with your Primary Care Physician on March 12, 2017 at 10:15AM Your Metoprolol was discontinued secondary to bradycardia PROCEDURES: MRI Brain: 1. No acute intracranial findings. 2. No intracranial mass or pathologic enhancement. 3. No change in appearance of the brain since MRI of January 23, 2014. 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 Vital Signs: Date Time Temp Pulse Resp B/P Pulse Ox O2 Delivery O2 Flow Rate FiO2 03/06/17 08:00 40 03/06/17 07:57 36.5 38 16 143/61 92 Room Air 03/06/17 00:01 Room Air 03/05/17 23:57 36.6 42 18 159/64 92 Room Air 03/05/17 20:00 Room Air 03/05/17 16:00 Room Air 03/05/17 15:42 36.4 43 18 136/64 92 Room Air Lab Results: Results Past 24 Hours Test 03/05/17 13:50 Range/Units Erythrocyte Sedimentation Rate 29 0-21 mm/hr
[2017-03-06] MEDS ORDERED: LSN10 PO (12:09)
[2017-03-06] MEDS ORDERED: NRV5 PO (12:09)
--- NOTE | 2017-03-06 12:12 | Discharge Summary ---
Discharge Summary Date of Service Mar 06, 2017. Discharge Summary Admission Date: Feb 24, 2017 at 23:57 Discharge Date: Mar 06, 2017 Discharge Disposition: assisted facility Principal Diagnosis: Pneumonia, Sinus Bradycardia Procedures: MRI Brain: 1. No acute intracranial findings. 2. No intracranial mass or pathologic enhancement. 3. No change in appearance of the brain since MRI of January 23, 2014. 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 KUB: Unremarkable bowel gas pattern. No evidence for bowel obstruction CXR: Prominent left perihilar opacity which was not evident on prior exam. This could reflect normal structures however airspace disease or a mass could appear similar. Follow-up PA and lateral chest radiographs are recommended. Consultations: Cardiology, Neurology Pending Studies/Follow-Up: Follow up with your Primary Care Physician on March 12, 2017 at 10:15AM Your Metoprolol was discontinued secondary to bradycardia Avoid Narcotic pain medications. Medication Reconciliation New Medications: Amlodipine Besylate (Amlodipine Besylate) 5 Mg Tab 10 MG PO QAM for 30 Days, #30 TAB Lisinopril (Zestril) 10 Mg Tab 30 MG PO QAM for 30 Days, #90 TAB Continued Medications: Acetaminophen Tab (Tylenol) 325 Mg Tab 650 MG PO Q4H PRN for Pain or Fever, TAB Aripiprazole (Abilify) 2 Mg Tab 2 MG PO QAM, TAB Aspirin (Aspirin Ec) 81 Mg Tab 81 MG PO QAM Citalopram Hydrobromide (Citalopram Hydrobromide) 20 Mg Tab 20 MG PO QAM for 90 Days, #90 TAB 3 Refills Docusate Sodium (Colace) 100 Mg Cap 100-200 MG PO DAILY PRN for Constipation for 30 Days, CAP Gabapentin (Neurontin) 100 Mg Cap 100 MG PO DAILY AT 1600, CAP Levothyroxine Sodium (Levothyroxine Sodium) 75 Mcg Tab 75 MCG PO QAM for 90 Days, #90 TAB 3 Refills Loperamide Hcl (Imodium) 2 Mg Cap 2 MG PO Q4H PRN for Diarrhea, CAP Potassium Chloride (Micro-K Ext Rel) 10 Meq Capcr 10 MEQ PO BIDM Solifenacin (Vesicare) 5 Mg Tab 5 MG PO QAM, TAB Discontinued Medications: Amlodipine (Norvasc) 5 Mg Tab 5 MG PO QAM, TAB Lisinopril (Lisinopril) 20 Mg Tab 20 MG PO QAM Metoprolol Succinate (Toprol Xl) 25 Mg Tabcr 25 MG PO BID, #30 TAB Oxycodone/Acetaminophen 5MG/325MG (Percocet 5MG/325MG) Tab 1-2 TABLETS PO Q6H PRN for Pain, TAB PAIN Admission Information HPI (per Admitting provider): this is a 87 yo female with hx of dementia, resident at [facility] Personal care sent to ED -as pt was found to be lethargic, increasing confusion, having fever chills on going cough and difficulty breathing history was limited -as pt has baseline dementia, could not give any meaningful information Spoke with Pt 's Son Donnell Denton over phone -Son mentions -[facility] stuff notified the family that pt was not eating , was sleeping most of the time past 48 hrs spiked temp , coughing , today afternoon pt was having labored breathing , pulse oximetry shows desaturation in 88% 2 L 02 was applied ( baseline not on home 02 ) EMS called -sent to ED for evaluation lab shows -leukocytosis WBC 14 K , persistent hypoxia requiring supplemental 02 \\ Cxray -possible basilar infiltrate pt admitted to Tele for Pneumonia-causing hypoxia, lethargy and changed mental status Physical Exam (per Admitting): General Appearance: no apparent distress (pleasant ) Eyes: normal inspection Respiratory/Chest: + decreased breath sounds, + crackles, + rales Cardiovascular: regular rate, rhythm, no edema Abdomen/GI: normal bowel sounds, non tender, soft Extremities/Musculoskelatal: no pedal edema Neurologic/Psych: + pertinent finding (baseline dementia, oriented to person only ) Hospital Course SINUS BRADYCARDIA -INTERMITTENT JUNCTIONAL BRADYCARDIA Intermittently HR is in 30s while asleep Currently HR: 40s Metoprolol 25 mg PO BID prior to admission - was discontinued Appreciate cardiology input. Troponin x 2 negative Echo - EF 65-70%, Mild LVH, grade I diastolic dysfunction No prolonged pauses and patient is asymptomatic. Given H/O dementia, advanced age, and patient being asymptomatic: pacemaker implantation is not indicated CT/MRI head without acute processes HEADACHE: MRI Brain:No acute pathology ESR: mild elevation ABDOMINAL PAIN: Resolved KUB: Unremarkable bowel gas pattern. No evidence for bowel obstruction. ACUTE HYPOXIC RESPIRATORY FAILURE Likely secondary to PNEUMONIA S/P IV Rocephin/Azithromycin (X DayS 4) (QTC - normal) >>>> Changed to Doxycycline 100 mg PO BID on 02/28/17 (Completed 5 days) Blood culture x 2- negative, Influenza screen is negative CXR on admission- Left perihilar opacity; Repeat CXR- Improved compared to prior one Currently saturating 92% on RA HTN Controlled BB discontinued secondary to bradycardia Continue Lisinopril 30 mg daily, Continue amlodipine 10 mg daily. IV Hydralazine PRN. METABOLIC ENCEPHALOPATHY IN SETTING OF DEMENTIA Likely delirium Seemed to be back at baseline CT/MRI Head: No acute pathology Appreciate Neurology input Mental status at baseline per patient's son (Discussed on 03/06/17) DEMENTIA : Very poor short term memory and recall -as per family members No behavioral disturbance noted during this admission HYPOTHYROIDISM : Continue levothyroxine TSH- normal CODE STATUS : Discussed with SON /POA by Dr Heard -has living will DNR /DNI Spoke with patient's son and updated today that patient will be discharged to [facility] DVT PX: SQ Heparin DISPOSITION : Resident at [facility] dementia unit - return to [facility] Plan to discharge to [facility] today Follow up with your Primary Care Physician on March 12, 2017 at 10:15AM Your Metoprolol was discontinued secondary to bradycardia PROCEDURES: MRI Brain: 1. No acute intracranial findings. 2. No intracranial mass or pathologic enhancement. 3. No change in appearance of the brain since MRI of January 23, 2014. 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 Total time spent on discharge =35 minutes This includes examination of the patient, discharge planning, medication reconciliation, and communication with other providers. Discharge Instructions Discharge Instructions Date of Service Mar 06, 2017. Admission Reason for Admission: Pneumonia Discharge Discharge Diagnosis / Problem: Pneumonia, Sinus Bradycardia Discharge Goals Goal(s): Decrease discomfort, Improve function Activity Recommendations Activity Limitations: resume your previous activity Exercise/Sports Limitations: as tolerated . Instructions / Follow-Up Instructions / Follow-Up Follow up with your Primary Care Physician on March 12, 2017 at 10:15AM Your Metoprolol was discontinued secondary to bradycardia Avoid Narcotic pain medications. Current Hospital Diet Patient's current hospital diet: AHA Diet (Heart Healthy) Discharge Diet Recommended Diet: AHA Diet (Heart Healthy) Pending Studies Studies pending at discharge: no Laboratory Results Lipid Panel Test 12/25/16 06:00 Range/Units Triglycerides Level 196 H 0-150 mg/dl Cholesterol Level 212 H 0-200 mg/dl HDL Cholesterol 36 mg/dl Cholesterol/HDL Ratio 5.9 LDL Cholesterol, Calculated 137 mg/dl Medical Emergencies . Who to Call and When: Medical Emergencies: If at any time you feel your situation is an emergency, please call 911 immediately. . Non-Emergent Contact Non-Emergency issues call your: Primary Care Provider Call Non-Emergent contact if: you have a fever, your pain is not controlled, your pain is worsening, your pain is unusual for you, you have any medication questions . . "Provider Documentation" section prepared by Gualberto Degroot. VTE Core Measure Inpt VTE Proph given/why not?: Unfractionated heparin SQ
[2017-03-06 13:28] VITALS: BP 145/88; PULSE 50; TEMP 36.5; O2SAT 98
[2017-03-06] MEDS ORDERED: NURSING VERBAL MED ORDER ONE (14:15)
[2017-03-06] MEDS ORDERED: AMLODIPINE BESYLATE 5 MG TAB PO SCH (14:45)
== END 2017-03-06 16:15 | disposition home or self-care (01) | DRG 193 ==
LOC: ENRESERVDT → ENRESERVTM → EDBD 21:28 → C.EDB 21:29 → C.2T 23:57 → C.MED 03-01 03:19 → C.MS4W 03-03 18:39
PROVIDERS: ADMIT Hospitalist; ATTEND Internal Medicine
DX: J18.9 Pneumonia, unspecified organism (principal); J96.01 Acute respiratory failure with hypoxia; G93.41 Metabolic encephalopathy; R00.1 Bradycardia, unspecified; R51 Headache; R10.9 Unspecified abdominal pain; I10 Essential (primary) hypertension; F03.90 Unspecified dementia, unspecified severity, without behavioral disturbance, psychotic disturbance, mood disturbance, and anxiety; E03.9 Hypothyroidism, unspecified; Z66 Do not resuscitate; Z82.49 Family history of ischemic heart disease and other diseases of the circulatory system; Z87.891 Personal history of nicotine dependence; Z79.82 Long term (current) use of aspirin